=== PATIENT | female | born 1980 ===

== ENCOUNTER 2025-01-09 13:09 | Inpatient (IN) | payer SELFPAY ==
[2025-01-09 13:32] VITALS: BP 135/91; PULSE 98; RESP 16; TEMP 36.3; O2SAT 100
--- NOTE | 2025-01-09 14:28 | ED.NAVMDI ---
HPI - Nausea/Vomiting/Diarrhea General Chief complaint: Nausea/Vomiting/Diarrhea <Meliza Mahmood PA-C - Last Filed: 01/10/25 10:50> Stated complaint: abd pain for 2 week, NVD, some fever <Meliza Mahmood PA-C - Last Filed: 01/10/25 10:50> Time Seen by Provider: 01/09/25 14:28 <Meliza Mahmood PA-C - Last Filed: 01/10/25 10:50> Focused HPI: This is a 44 year old female that presents to the ER for nausea, vomiting, diarrhea. Ongoing over the last couple of weeks. Reports mid abdominal pain, low grade fevers. Denies dysuria, hematuria. Reports she saw bright red blood in her stool. GENERAL: Well-appearing, well-nourished, and in no acute distress. HEAD: Normocephalic, atraumatic. CHEST: Clear to auscultation. ?No respiratory distress. HEART: Regular rate and rhythm.? NEURO: ?Alert and oriented x3. Patient screened in triage and initial orders placed.? ?Additional care and disposition to be based upon?diagnostic testing and treatment. <Meliza Mahmood PA-C - Last Filed: 01/10/25 10:50> History of Present Illness HPI Narrative: Patient 44-year-old female who presents emergency department chief complaint of nausea vomiting diarrhea. Patient reports the last week she has been having pain reports that is more the epigastric type pain reports radiates to her back patient did report that she had some blood in her stool earlier today <Alexandr Millan MD - Last Filed: 01/09/25 19:36> Related Data Home medications: Home Medications ?Medication ?Instructions ?Recorded ?Confirmed ?Last Taken ?Type losartan 50 mg tablet 50 mg PO DAILY 01/09/25 01/09/25 01/08/25 History metoprolol succinate 100 mg 100 mg PO DAILY 01/09/25 01/09/25 01/08/25 History tablet,extended release 24 hr <Meliza Mahmood PA-C - Last Filed: 01/10/25 10:50> Allergies/Adverse reactions: Allergies Allergy/AdvReac Type Severity Reaction Status Date / Time Sulfa (Sulfonamide Allergy Hives Verified 01/09/25 13:36 Antibiotics) <Meliza Mahmood PA-C - Last Filed: 01/10/25 10:50> Review of Systems Review of Systems: A 10 system review of systems was completed on the patient and is negative except for what is stated in the HPI. Nursing and ancillary documentation was reviewed. <Alexandr Millan MD - Last Filed: 01/09/25 19:36> PMFSH Past Medical History Medical History: Medical History Obesity (BMI 30-39.9) <Meliza Mahmood PA-C - Last Filed: 01/10/25 10:50> Surgical History Surgical History: Surgical History History of x2 <Meliza Mahmood PA-C - Last Filed: 01/10/25 10:50> Social History Social History: Social History Smoking packs per day: 17 Smoking cigarettes per day: 340.0 Smoking status: Current every day smoker Tobacco type: cigarettes Second hand tobacco smoke exposure: No Alcohol intake: former Substance use: former Do You Feel Safe in your Home?: Yes Lack of Transportation: No Lack of Food: Never True Current Housing: I Have Housing Concerned About Future Housing: No Difficulty Paying Gas/Electric Bills: No Difficulty Paying for Meds: No Currently Unemployed: No Education: High School Diploma/GED Difficulty w/ Childcare or Family Care: No Spiritual care concerns: No <Meliza Mahmood PA-C - Last Filed: 01/10/25 10:50> Exam Narrative: GENERAL: Well-appearing, well-nourished, and in no acute distress. HEAD: Normocephalic, atraumatic. EYES: PERRLA and EOMI. ENT: Nares clear, no rhinorrhea or epistaxis. Mucous membranes moist. NECK: Supple. CHEST: Clear to auscultation. No respiratory distress. HEART: Regular rate and rhythm. No murmur heard. Normal peripheral pulses. ABDOMEN: Soft, diffusely tender to palpation, nondistended, normal active bowel sounds. : Guaiac-negative stool EXTREMITIES: Normal range of motion. No edema. SKIN: Warm, dry, no rash. NEURO: No focal deficits. Alert and oriented x3. PSYCH: Normal mood and affect. <Alexandr Millan MD - Last Filed: 01/09/25 19:36> Course Vital Signs Vital signs: Vital Signs Temperature 97.3 F L 01/09/25 13:32 Pulse Rate 98 01/09/25 13:32 Respiratory Rate 16 01/09/25 13:32 Blood Pressure 135/91 H 01/09/25 13:32 Pulse Oximetry 100 01/09/25 13:32 Oxygen Delivery Room Air 01/09/25 13:32 Temperature 97.8 F 01/10/25 04:47 Pulse Rate 87 01/10/25 08:29 Respiratory Rate 16 01/10/25 04:49 Blood Pressure 143/91 H 01/10/25 04:49 Pulse Oximetry 100 01/10/25 04:49 Oxygen Delivery Room Air 01/10/25 08:00 <Meliza Mahmood PA-C - Last Filed: 01/10/25 10:50> Vital Signs Temperature 97.3 F L 01/09/25 13:32 Pulse Rate 98 01/09/25 13:32 Respiratory Rate 16 01/09/25 13:32 Blood Pressure 135/91 H 01/09/25 13:32 Pulse Oximetry 100 01/09/25 13:32 Oxygen Delivery Room Air 01/09/25 13:32 Temperature 97.8 F 01/10/25 04:47 Pulse Rate 87 01/10/25 08:29 Respiratory Rate 16 01/10/25 04:49 Blood Pressure 143/91 H 01/10/25 04:49 Pulse Oximetry 100 01/10/25 04:49 Oxygen Delivery Room Air 01/10/25 08:00 <Alexandr Millan MD - Last Filed: 01/09/25 19:36> MDM - Nausea/Vomiting/Diarrhea Lab Data Result diagrams: 01/10/25 06:59 01/10/25 06:59 <Meliza Mahmood PA-C - Last Filed: 01/10/25 10:50> Labs: Lab Results 01/09/25 01/09/2525 Range/Units 15:10 15:11 15:18 WBC 11.0 H (4.5-10.0) K/mm3 RBC 4.67 (4.2-5.4) M/mm3 Hgb 11.4 L (12.0-15.0) g/dL Hct 35.4 L (37.0-47.0) % MCV 75.8 L (80-100) fl MCH 24.4 L (26-34) pg MCHC 32.2 (32-36) g/dl RDW 20.8 H (11.5-14.5) % Plt Count 500 H (150-375) k/mm3 MPV 11.2 H (7.4-10.4) fl Immature Gran % (Auto) 0.5 (0-0.5) % Neut % (Auto) 72.5 (45.5-73.1) % Lymph % (Auto) 16.0 L (18.3-44.2) % D[place]key % (Auto) 8.8 H (2.6-8.5) % Eos % (Auto) 1.8 (0-4.4) % Baso % (Auto) 0.4 (0.2-1.2) % Lymph # (Auto) 1.76 (0.9-3.2) K/mm3 [place]key # (Auto) 1.0 H (0.1-0.6) K/mm3 Eos # (Auto) 0.2 (0-0.3) K/mm3 Baso # (Auto) 0.0 (0.0-0.1) K/mm3 Abs Immat Gran (auto) 0.05 H (0.00-0.031) K/mm3 Absolute Neuts (auto) 8.0 H (1.3-6.7) K/mm3 Absolute Nucleated RBC 0.000 (0.0-0.012) K/mm3 Nucleated RBC % 0.0 (0.0-0.2) % PT 14.0 (11.1-14.7) Seconds INR 1.0 APTT 23.9 (22.3-36.8) Seconds Sodium 136 L (137-145) mmol/L Potassium 3.7 (3.4-5.0) mmol/L Chloride 105 (98-107) mmol/L Carbon Dioxide 19 L (22-30) mmol/L Anion Gap 12 (4-12) mmol/L BUN 7 (7-17) mg/dL Creatinine 0.49 L (0.7-1.0) mg/dL Estim Creat Clear Calc 128 ml/min Estimated GFR > 60 (59 - ) Glucose 126 H (65-110) mg/dL Calcium 8.4 (8.4-10.2) mg/dL Total Bilirubin 5.5 H (0.2-1.3) mg/dL AST 926 H (14-36) U/L ALT 720 H (6-35) U/L Alkaline Phosphatase 292 H (38-126) U/L Total Protein 7.0 (6.3-8.2) g/dL Albumin 3.6 (3.5-5.1) g/dL Lipase 169 (23-300) U/L Urine Color Dark yellow (Yellow) Urine Appearance Clear (Clear) Urine pH 5.5 (5.0-9.0) Ur Specific [place] 1.022 (1.001-1.035) Urine Protein Trace (Negative) mg/dL Urine Glucose (UA) Negative (Negative) mg/dL Urine Ketones Negative (Negative) mg/dL Ur Blood (Man) 1+ H (Negative) Urine Nitrate Positive H (Negative) Urine Bilirubin 3+ H (Negative) Urine Urobilinogen 1.0 (<2.0) mg/dL Leukocyte Esterase Rfl 2+ H (Negative) SHANNAN/UL Urine RBC 3-5 H (0-2) /hpf Urine WBC 21-50 H (0-3) /hpf Ur Squamous Epith Cells None seen (Few) /hpf Urine Bacteria 4+ H /hpf Urine Casts 0-2 POC Urine HCG, Qual Negative (Negative) Influenza A (RT-PCR) Negative (Negative) Influenza B (RT-PCR) Negative (Negative) SARS-CoV-2 RNA (RT-PCR) Negative (Negative) <Meliza Mahmood PA-C - Last Filed: 01/10/25 10:50> Lab Results 01/09/25 01/09/25 01/09/25 Range/Units 15:10 15:11 15:18 WBC 11.0 H (4.5-10.0) K/mm3 RBC 4.67 (4.2-5.4) M/mm3 Hgb 11.4 L (12.0-15.0) g/dL Hct 35.4 L (37.0-47.0) % MCV 75.8 L (80-100) fl MCH 24.4 L (26-34) pg MCHC 32.2 (32-36) g/dl RDW 20.8 H (11.5-14.5) % Plt Count 500 H (150-375) k/mm3 MPV 11.2 H (7.4-10.4) fl Immature Gran % (Auto) 0.5 (0-0.5) % Neut % (Auto) 72.5 (45.5-73.1) % Lymph % (Auto) 16.0 L (18.3-44.2) % Dickey % (Auto) 8.8 H (2.6-8.5) % Eos % (Auto) 1.8 (0-4.4) % Baso % (Auto) 0.4 (0.2-1.2) % Lymph # (Auto) 1.76 (0.9-3.2) K/mm3 [place]key # (Auto) 1.0 H (0.1-0.6) K/mm3 Eos # (Auto) 0.2 (0-0.3) K/mm3 Baso # (Auto) 0.0 (0.0-0.1) K/mm3 Abs Immat Gran (auto) 0.05 H (0.00-0.031) K/mm3 Absolute Neuts (auto) 8.0 H (1.3-6.7) K/mm3 Absolute Nucleated RBC 0.000 (0.0-0.012) K/mm3 Nucleated RBC % 0.0 (0.0-0.2) % PT 14.0 (11.1-14.7) Seconds INR 1.0 APTT 23.9 (22.3-36.8) Seconds Sodium 136 L (137-145) mmol/L Potassium 3.7 (3.4-5.0) mmol/L Chloride 105 (98-107) mmol/L Carbon Dioxide 19 L (22-30) mmol/L Anion Gap 12 (4-12) mmol/L BUN 7 (7-17) mg/dL Creatinine 0.49 L (0.7-1.0) mg/dL Estim Creat Clear Calc 128 ml/min Estimated GFR > 60 (59 - ) Glucose 126 H (65-110) mg/dL Calcium 8.4 (8.4-10.2) mg/dL Total Bilirubin 5.5 H (0.2-1.3) mg/dL AST 926 H (14-36) U/L ALT 720 H (6-35) U/L Alkaline Phosphatase 292 H (38-126) U/L Total Protein 7.0 (6.3-8.2) g/dL Albumin 3.6 (3.5-5.1) g/dL Lipase 169 (23-300) U/L Urine Color Dark yellow (Yellow) Urine Appearance Clear (Clear) Urine pH 5.5 (5.0-9.0) Ur Specific [place] 1.022 (1.001-1.035) Urine Protein Trace (Negative) mg/dL Urine Glucose (UA) Negative (Negative) mg/dL Urine Ketones Negative (Negative) mg/dL Ur Blood (Man) 1+ H (Negative) Urine Nitrate Positive H (Negative) Urine Bilirubin 3+ H (Negative) Urine Urobilinogen 1.0 (<2.0) mg/dL Leukocyte Esterase Rfl 2+ H (Negative) SHANNAN/UL Urine RBC 3-5 H (0-2) /hpf Urine WBC 21-50 H (0-3) /hpf Ur Squamous Epith Cells None seen (Few) /hpf Urine Bacteria 4+ H /hpf Urine Casts 0-2 POC Urine HCG, Qual Negative (Negative) Influenza A (RT-PCR) Negative (Negative) Influenza B (RT-PCR) Negative (Negative) SARS-CoV-2 RNA (RT-PCR) Negative (Negative) <Alexandr Millan MD - Last Filed: 01/09/25 19:36> Imaging Data Radiologist's impression: ITS Impressions Abdomen Ultrasound 01/09/25 18:21 IMPRESSION: Cholelithiasis. Adenomyomatosis of the gallbladder. Otherwise, normal limited abdominal ultrasound. Abdomen/Pelvis CT 01/09/25 18:33 IMPRESSION: 1. No acute abdominal process with no evidence of appendicitis, diverticulitis or intestinal obstruction. 2. Cholelithiasis. 3. Sliding hiatus hernia. <Meliza Mahmood PA-C - Last Filed: 01/10/25 10:50> Critical Care Time Critical Care Time Critical Care Time: No <Meliza Mahmood PA-C - Last Filed: 01/10/25 10:50> Discharge Plan Discharge Clinical Impression: Transaminitis, Hyperbilirubinemia, Acute UTI <Meliza Mahmood PA-C - Last Filed: 01/10/25 10:50> Patient Disposition: Still a Patient <Meliza Mahmood PA-C - Last Filed: 01/10/25 10:50> Condition: Stable <Meliza Mahmood PA-C - Last Filed: 01/10/25 10:50>
--- NOTE | 2025-01-09 15:18 | PC.NURSE ---
RN noted pt scelra jaundice, urine orange tinted. Pt states S/O has told her she looks yellow. Pt reports of history of substance abuse. Denies recent use. Meliza ARCHER informed
[2025-01-09 15:20] LABS: BEDSIDEPREGUCG Negative (Negative)
[2025-01-09 15:30] LABS: Basophils Percent Auto 0.4 % (0.2-1.2); Eosinophils Absolute Auto 0.2 K/mm3 (0-0.3); Eosinophils Percent Auto 1.8 % (0-4.4); Hematocrit 35.4 % (37.0-47.0); Hemoglobin 11.4 g/dL (12.0-15.0); Immature Granulocyte Absolute 0.05 K/mm3 (0.00-0.031); Immature Granulocyte Percent A 0.5 % (0-0.5); Lymphocytes Absolute Auto 1.76 K/mm3 (0.9-3.2); Mean Corpuscular HGB Conc 32.2 g/dl (32-36); Mean Corpuscular Hemoglobin 24.4 pg (26-34); Mean Corpuscular Volume 75.8 fl (80-100); Mean Platelet Volume 11.2 fl (7.4-10.4); Monocytes Percent Auto 8.8 % (2.6-8.5); Neutrophils Percent Auto 72.5 % (45.5-73.1); Platelet Count Result 500 k/mm3 (150-375); Red Blood Count 4.67 M/mm3 (4.2-5.4); Red Cell Distribution Width 20.8 % (11.5-14.5)
[2025-01-09 15:33] LABS: Add Urine Microscopic? YES; Appearance Urine Clear (Clear); Bacteria Urine 4+ /hpf; Bilirubin Urine 3+ (Negative); Blood Urine 1+ (Negative); Color Urine Dark Yellow (Yellow); Glucose Urine UA Negative (Negative); Ketones Urine Negative (Negative); Leukocyte Esterase Ur 2+ LEU/UL (Negative); Nitrate Urine Positive (Negative); Non Pathogenic Casts 0-2; Protein Urine Trace mg/dL (Negative); Specific Grav Ur 1.022 (1.001-1.035); Squamous Epithelial Cell Urine None Seen /hpf (Few); WBC Urine 21-50 /hpf (0-3); pH Urine 5.5 (5.0-9.0)
[2025-01-09 15:41] LABS: Partial Thromboplastin Time 23.9 Seconds (22.3-36.8)
[2025-01-09 15:51] LABS: Alanine Aminotransferase 720 U/L (6-35); Albumin Level 3.6 g/dL (3.5-5.1); Alkaline Phosphatase 292 U/L (38-126); Anion Gap 12 mmol/L (4-12); Bilirubin,Total 5.5 mg/dL (0.2-1.3); Blood Urea Nitrogen 7 mg/dL (7-17); Calcium 8.4 mg/dL (8.4-10.2); Carbon Dioxide 19 mmol/L (22-30); Chloride 105 mmol/L (98-107); Estimated CRCL calculation 128 ml/min; Estimated Glomerular Filt Rate > 60; Glucose 126 mg/dL (65-110); Lipase 169 U/L (23-300); Potassium 3.7 mmol/L (3.4-5.0); Sodium 136 mmol/L (137-145)
[2025-01-09 16:17] LABS: Influenza A QL RT-PCR Negative (Negative); Influenza B QL RT-PCR Negative (Negative); SARS-CoV-2 RNA PCR Negative (Negative)
[2025-01-09 16:18] LABS: Aspartate Amino Transferase 926 U/L (14-36)
[2025-01-09] MEDS: ONDANSETRON INJ 4 MG/2 ML VIAL IV PUSH (16:55)
[2025-01-09] MEDS: SODIUM CHLORIDE 0.9% IV 1,000 ML 999 ML IV CONT (16:55)
[2025-01-09] MEDS: PANTOPRAZOLE SODIUM IV 40 MG VIAL IV PUSH (16:55)
[2025-01-09 18:01] VITALS: BP 121/58; PULSE 89; RESP 16; TEMP 36.6; O2SAT 100
[2025-01-09 18:50] VITALS: BP 116/61; PULSE 99; RESP 16; O2SAT 98
[2025-01-09 21:04] VITALS: BP 154/82; PULSE 110; RESP 24; TEMP 36.9; O2SAT 100
[2025-01-09] MEDS: PIPERACILLN/TAZ 3.375GM/NS50ML 3.375 GM/50 ML BAG IVPB ×2 (21:37→23:55)
[2025-01-09] MEDS: SODIUM CHLORIDE 0.9% IV 1,000 ML 125 ML IV CONT (22:28)
--- NOTE | 2025-01-09 22:42 | PM.IMHP ---
H&P: HPI History of Present Illness Date/Time: 01/09/25 22:42 Chief Complaint: 1. RUQ Abdominal 2. Nausea; Vomiting Narrative: Duane Ricardo is a HTN, obesity, nicotine dependence She over the last 1-2 weeks has been experiencing intermittent RUQ abdominal pains; they are intermittent, sharp, non-radiating, rated 8-10 in intensity; aggravated by meals; associated with post-prandial vomiting, loose bowel movements with x1 bloody stools; associated with jaundice, anorexia, malaise, fatigue and anxiety. She denies fevers, chills, dizziness, chest pain, joint pain/swellings; cough, LOC A entry level truck driver; she smokes about 1pps of cigarettes, denies alcohol or consume recreational/illicit drugs; surgical history includes caesarean section Work-up findings: Abdominal US: Cholelithiasis. Adenomyomatosis of the gallbladder. Abdomen/Pelvis CT: 1. No acute abdominal process with no evidence of appendicitis, diverticulitis or intestinal obstruction. 2. Cholelithiasis. 3. Sliding hiatus hernia. UA: +Nitrites; 2+LE; 21-50 WBC; 4+ Bacteria Influenza A/BB, COVID: Negative WBC 11; Hb 11.4; PLT 500 Na 136; K 3.7; Cl105; Co2 19; AG 12; AST 926; ALT 720; ALP 292; T. Bili 5.5; Lipase 169 Giovana Ricardo will be admitted, evaluated and managed for cholelithiasis, cholestatic Hepatitis, UTI Review of Systems Review of Systems: All systems reviewed & are unremarkable except as noted in HPI and below PMFSH Past Medical History Medical History (Updated 01/10/25 @ 02:51 by Aly Martinez MD) Obesity (BMI 30-39.9) Social History Social History Smoking packs per day: 17 Smoking cigarettes per day: 340.0 Smoking status: Current every day smoker Tobacco type: cigarettes Second hand tobacco smoke exposure: No Alcohol intake: former Substance use: former Do You Feel Safe in your Home?: Yes Lack of Transportation: No Lack of Food: Never True Current Housing: I Have Housing Concerned About Future Housing: No Difficulty Paying Gas/Electric Bills: No Difficulty Paying for Meds: No Currently Unemployed: No Education: High School Diploma/GED Difficulty w/ Childcare or Family Care: No Spiritual care concerns: No Meds Home Medications and Allergies Home Medications ?Medication ?Instructions ?Recorded ?Confirmed ?Type losartan 50 mg tablet 50 mg PO DAILY 01/09/25 01/09/25 History metoprolol succinate 100 mg 100 mg PO DAILY 01/09/25 01/09/25 History tablet,extended release 24 hr Allergies Allergy/AdvReac Type Severity Reaction Status Date / Time Sulfa (Sulfonamide Allergy Hives Verified 01/09/25 13:36 Antibiotics) Vital Signs Vital Signs - 24 hr 01/09/25 13:32 01/09/25 18:01 01/09/25 18:50 Temperature 97.3 F L 97.9 F Pulse Rate 98 89 99 Respiratory Rate 16 16 16 Blood Pressure 135/91 H 121/58 L 116/61 Pulse Oximetry 100 100 98 Oxygen Delivery Room Air 01/09/25 21:04 Temperature 98.4 F Pulse Rate 110 H Respiratory Rate 24 H Blood Pressure 154/82 H Pulse Oximetry 100 Oxygen Delivery Exam Const: General: no acute distress HENMT: Ears: TM's normal bilaterally Mouth: Yes moist mucous membranes Eyes: Sclera: scleral abnormality bilateral Pupils: Equal, round and reactive pupils present EOM: EOMs intact bilaterally Neck: Neck: supple and no JVD Thyroid: thyroid normal Resp: Effort & Inspection: normal respiratory effort Auscultation: clear to auscultation bilaterally, crackles, rales, rhonchi and diminished lung sounds Cardio: Rate: regular rate GI: Inspection: distended Auscultation: normal bowel sounds Skin: General skin exam: normal color (Icteric) Neuro: General: gait normal Motor exam (neuro): 5/5 motor strength present throughout, Normal motor muscle tone present throughout and Abnormal motor strength present Extrem: General: normal to inspection Psych: Mental Status: mental status grossly normal Affect: normal affect H&P: Results Labs Labs: Short CBC 01/09/25 Range/Units 15:10 WBC 11.0 H (4.5-10.0) K/mm3 Hgb 11.4 L (12.0-15.0) g/dL Hct 35.4 L (37.0-47.0) % Plt Count 500 H (150-375) k/mm3 BMP 01/09/25 15:10 Sodium 136 L Potassium 3.7 Chloride 105 Carbon Dioxide 19 L BUN 7 Creatinine 0.49 L Glucose 126 H Calcium 8.4 Liver Function 01/09/25 Range/Units 15:10 Total Bilirubin 5.5 H (0.2-1.3) mg/dL AST 926 H (14-36) U/L ALT 720 H (6-35) U/L Alkaline Phosphatase 292 H (38-126) U/L Albumin 3.6 (3.5-5.1) g/dL Urine 01/09/25 Range/Units 15:10 Urine Color Dark yellow (Yellow) Urine Appearance Clear (Clear) Urine pH 5.5 (5.0-9.0) Ur Specific [place] 1.022 (1.001-1.035) Urine Protein Trace (Negative) mg/dL Urine Glucose (UA) Negative (Negative) mg/dL Assessment and Plan Assessment and plan (1) Cholestatic hepatitis: Code(s): K75.89 - Other specified inflammatory liver diseases Status: Acute (2) Obesity (BMI 30-39.9): Code(s): E66.9 - Obesity, unspecified Status: Acute (3) Hypertension: Code(s): I10 - Essential (primary) hypertension Status: Acute (4) Nicotine dependence: Code(s): F17.200 - Nicotine dependence, unspecified, uncomplicated Status: Acute Plan Acute and principal conditions 1. Cholestatic hepatitis; Cholelithiasis Cholelithiasis. Adenomyomatosis of the gallbladder 2. NAGMA 3. UTI 4. Sliding hiatus hernia. Rx: A. Zosyn; IVFs; B. General surgery consulted; GI consulted C. NPO Chronic and stable conditions 1. Nicotine dependence. 2. Obesity, BMI 35. 3. Hypertension Miscellaneous care. 1. Code status. Full 2. Nutrition. NPO 3. VTE prophylaxis. SCDs; [facility] Hospitalist [facility] Advance Care Plan I have confirmed that the patient's Advanced Care Plan is present, code status is documented, or surrogate decision maker is listed in patient medical record.: Yes Medication Reconciliation I have utilized all available resources to obtain, update and review the patients current medications (includes all prescriptions, OTC, herbals, cannabis, and nutritional supplements).: Yes The patient is not eligible for med reconciliation; the patient is in a emergent medical situation where delaying treatment would jeopardize the patients health.: Yes
[2025-01-09 23:03] VITALS: BP 148/88; PULSE 95; RESP 15; O2SAT 99
[2025-01-09 23:23] VITALS: BP 137/88; PULSE 101; RESP 18; TEMP 36.9; O2SAT 99
[2025-01-09 23:27] VITALS: BMI 35.3
[2025-01-09] MEDS: MORPHINE SULFATE (*CRX) 2 MG/ML INJ IV PUSH (23:52)
[2025-01-10] VITALS (7 sets, daily range): BP systolic 110–154; BP diastolic 69–91; PULSE 77–104; RESP 14–18; TEMP 36.3–36.8; O2SAT 97–100
--- NOTE | 2025-01-10 01:28 | ADMGEN ---
This patient, Giovana Ricardo, was admitted to [facility] Surg Room 325-02. Patient/family oriented to hospital policies and general routines including ID bracelet, bed and alarms, visiting hours, pain management, procedures, bathroom and other care routines, personal items, smoking policy, room service/diet, and visiting hours. Information on how to activate the Rapid Response Team has been discussed. Patient/Family are encouraged to report perceived risks to care and to ask questions if they do not understand what they are told or what they should do.
[2025-01-10] MEDS: PIPERACILLN/TAZ 3.375GM/NS50ML 3.375 GM/50 ML BAG IVPB ×3 (05:23→17:15)
[2025-01-10 07:28] LABS: Basophils Absolute Auto 0.1 K/mm3 (0.0-0.1); Basophils Percent Auto 0.6 % (0.2-1.2); Eosinophils Absolute Auto 0.3 K/mm3 (0-0.3); Eosinophils Percent Auto 2.9 % (0-4.4); Hematocrit 29.1 % (37.0-47.0); Hemoglobin 9.7 g/dL (12.0-15.0); Immature Granulocyte Absolute 0.03 K/mm3 (0.00-0.031); Immature Granulocyte Percent A 0.4 % (0-0.5); Lymphocytes Absolute Auto 1.95 K/mm3 (0.9-3.2); Lymphocytes Percent Auto 22.8 % (18.3-44.2); Mean Corpuscular HGB Conc 33.3 g/dl (32-36); Mean Corpuscular Hemoglobin 24.4 pg (26-34); Mean Corpuscular Volume 73.1 fl (80-100); Mean Platelet Volume 10.6 fl (7.4-10.4); Monocytes Absolute Auto 0.9 K/mm3 (0.1-0.6); Monocytes Percent Auto 10.4 % (2.6-8.5); Neutrophils Absolute Auto 5.4 K/mm3 (1.3-6.7); Neutrophils Percent Auto 62.9 % (45.5-73.1); Platelet Count Result 471 k/mm3 (150-375); Red Blood Count 3.98 M/mm3 (4.2-5.4); Red Cell Distribution Width 20.1 % (11.5-14.5); White Blood Count 8.6 K/mm3 (4.5-10.0)
[2025-01-10 07:57] LABS: Alanine Aminotransferase 571 U/L (6-35); Albumin Level 2.9 g/dL (3.5-5.1); Alkaline Phosphatase 239 U/L (38-126); Anion Gap 9 mmol/L (4-12); Aspartate Amino Transferase 708 U/L (14-36); Bilirubin Indirect 1.3 mg/dL (0-1.1); Blood Urea Nitrogen 4 mg/dL (7-17); Calcium 7.9 mg/dL (8.4-10.2); Carbon Dioxide 21 mmol/L (22-30); Chloride 109 mmol/L (98-107); Estimated CRCL calculation 108 ml/min; Estimated Glomerular Filt Rate > 60; Glucose 87 mg/dL (65-110); Lipase 143 U/L (23-300); Potassium 3.6 mmol/L (3.4-5.0); Sodium 139 mmol/L (137-145)
[2025-01-10] MEDS: HEPARIN SODIUM 5,000 UNITS/ML VIAL 5000 UNITS SUB-Q ×2 (08:29→20:33)
[2025-01-10] MEDS: METOPROLOL SUCCINATE EXT REL 100 MG TABCR PO (08:29)
[2025-01-10] MEDS: SODIUM CHLORIDE 0.9% IV 1,000 ML 100 ML IV CONT ×2 (08:33→17:16)
[2025-01-10 08:51] LABS: Anisocytosis 1+; Platelet Estimate Adequate (Adequate)
[2025-01-10 08:52] LABS: Microcytosis 1+ (NORMAL); Schistocytes None Seen
[2025-01-10 09:24] LABS: Hepatitis B Surface Antigen Negative (Negative)
[2025-01-10 09:30] LABS: HAV RESULT Negative (Negative); Hepatitis B Core IgM Result Negative (Negative)
[2025-01-10 09:42] LABS: Iron 51 ug/dL (37-170)
[2025-01-10 09:47] LABS: Hepatitis C Virus Antibody Reactive (Negative)
[2025-01-10 09:52] LABS: Percent Iron Saturation 11 % (20-50)
--- NOTE | 2025-01-10 10:00 | PM.CNGS ---
Assessment and Plan Assessment and plan (1) Cholelithiasis: Code(s): K80.20 - Calculus of gallbladder without cholecystitis without obstruction Status: Acute Assessment and Plan: CT scan abdomen and pelvis showed cholelithiasis. RUQ ultrasound showed cholelithiasis and adenomyomatosis of the gallbladder. No evidence of cholecystitis or biliary duct dilatation on US or CT. LFTs elevated with total bilirubin at 5.5 on admission and up to 6.0 today. MRCP has been ordered for today and GI was consulted. If her transaminitis appears to be related to choledocholithiasis, then she would eventually need a laparoscopic cholecystectomy. Will continue to follow along and decide plan depending on results of workup. (2) Elevated LFTs: Code(s): R79.89 - Other specified abnormal findings of blood chemistry Status: Acute Assessment and Plan: See plan above. GI consulted. MRCP ordered. (3) Obesity (BMI 30-39.9): Code(s): E66.9 - Obesity, unspecified Status: Acute (4) Hypertension: Code(s): I10 - Essential (primary) hypertension Status: Acute (5) Nicotine dependence: Code(s): F17.200 - Nicotine dependence, unspecified, uncomplicated Status: Acute Plan I have discussed the patient's case and plan of care with Dr. Carlos. History of Present Illness Consult details Consult date: 01/10/25 Reason for consult: other (Cholelithiasis, elevated liver enzymes) Requesting physician: Alexandr Millan MD Narrative: This is a 44-year-old woman with PMH of hypertension, who we have been asked to see in surgical consultation for cholelithiasis and elevated liver enzymes. She reports having an episode of vomiting, diarrhea, and upper abdominal pain starting 2 weeks ago. Her symptoms lasted for about a week and eventually improved. She felt that her pain vomiting was attributed to eating. She would vomit about 2 hours after eating any solid foods. She also reports having intermittent fevers that would improve with Tylenol and Motrin over the past 2 weeks. She initially thought this was related to a viral infection as her symptoms improved. Then, 2 days ago, her upper abdominal pain, vomiting, and diarrhea returned. 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 Her pain progressed yesterday and she eventually stop to come into the ED for evaluation. [place] [address], total bilirubin 5.5, AST 926, ALT 720, alk-phos 292, and lipase normal. UA suggests UTI. Culture pending. Influenza a/B, COVID, all negative. Right upper quadrant abdominal ultrasound showed cholelithiasis, adenomyomatosis of the gallbladder, but otherwise normal abdominal ultrasound. CT scan of the abdomen pelvis showed cholelithiasis, small sliding hiatal hernia, but no other acute intra-abdominal processes. She was admitted and our service was consulted. MRCP has been ordered but not yet done. She reports having upper abdominal pain today. No vomiting since admission. With further questioning, she does endorse dark orange/brown colored urine and acholic stools for the past 2 days. Her significant other also noticed scleral icteric. She denies any history of pancreatitis or known gallbladder disease. Only previous abdominal surgeries is 2 deliveries. She denies any heavy alcohol use. She is a smoker of about 1 pack per day. Review of Systems Review of Systems: All systems reviewed & are unremarkable except as noted in HPI and below PMFSH Past Medical History Medical History Obesity (BMI 30-39.9) Surgical History Surgical History History of x2 Social History Social History Smoking packs per day: 17 Smoking cigarettes per day: 340.0 Smoking status: Current every day smoker Tobacco type: cigarettes Second hand tobacco smoke exposure: No Alcohol intake: former Substance use: former Do You Feel Safe in your Home?: Yes Lack of Transportation: No Lack of Food: Never True Current Housing: I Have Housing Concerned About Future Housing: No Difficulty Paying Gas/Electric Bills: No Difficulty Paying for Meds: No Currently Unemployed: No Education: High School Diploma/GED Difficulty w/ Childcare or Family Care: No Spiritual care concerns: No Meds Home Medications and Allergies Home Medications ?Medication ?Instructions ?Recorded ?Confirmed ?Type losartan 50 mg tablet 50 mg PO DAILY 01/09/25 01/09/25 History metoprolol succinate 100 mg 100 mg PO DAILY 01/09/25 01/09/25 History tablet,extended release 24 hr Allergies Allergy/AdvReac Type Severity Reaction Status Date / Time Sulfa (Sulfonamide Allergy Hives Verified 01/09/25 13:36 Antibiotics) Vital Signs Vital Signs - 24 hr 01/09/25 13:32 01/09/25 18:01 01/09/25 18:50 Temperature 97.3 F L 97.9 F Pulse Rate 98 89 99 Respiratory Rate 16 16 16 Blood Pressure 135/91 H 121/58 L 116/61 Pulse Oximetry 100 100 98 Oxygen Delivery Room Air 01/09/25 21:04 01/09/25 23:03 01/09/25 23:23 Temperature 98.4 F 98.5 F Pulse Rate 110 H 95 101 H Respiratory Rate 24 H 15 18 Blood Pressure 154/82 H 148/88 H 137/88 Pulse Oximetry 100 99 99 Oxygen Delivery 01/09/25 23:45 01/10/25 04:47 01/10/25 04:47 Temperature 97.8 F Pulse Rate 87 104 H Respiratory Rate 14 16 Blood Pressure 147/81 H 154/86 H Pulse Oximetry 98 100 Oxygen Delivery Room Air 01/10/25 04:49 01/10/25 08:29 Temperature Pulse Rate 98 87 Respiratory Rate 16 Blood Pressure 143/91 H Pulse Oximetry 100 Oxygen Delivery Exam Const: General: comfortable and no acute distress Nutritional Appearance: average body habitus Orientation/consciousness: patient oriented x3 HENMT: Head: normocephalic and atraumatic Ears: hearing grossly normal bilaterally Mouth: Yes moist mucous membranes Eyes: General: appearance normal, both eyes and all related structures Pupils: Equal, round and reactive pupils present Neck: Neck: normal visual inspection and full ROM Resp: Effort & Inspection: no respiratory distress Auscultation: clear to auscultation bilaterally Cardio: Rate: regular rate Rhythm: regular rhythm Peripheral pulses: Peripheral pulses 2+ throughout GI: Inspection: non-distended, scar (Pfannenstiel scar) and no visible herniation GI Palp: Yes Soft to palpation, Yes Tenderness to palpation present (GI) (Mild epigastric area tenderness), No Guarding due to palpation present (GI), Yes No hepatosplenomegaly present and No Rebound tenderness present Auscultation: normal bowel sounds Skin: General skin exam: normal color Neuro: General: moves all extremities Cranial nerves: Yes Equal, round and reactive pupils present Speech: normal speech Motor exam (neuro): 5/5 motor strength present throughout Extrem: General: normal to inspection and no edema Psych: Mental Status: mental status grossly normal Attitude: cooperative Insight: Good insight present (Psych) Judgement: Good judgement present (Psych) Results Labs 01/10/25 06:59 01/10/25 06:59 Labs: Abnormal lab results 01/09/25 01/10/25 Range/Units 15:10 06:59 WBC 11.0 H (4.5-10.0) K/mm3 RBC 3.98 L (4.2-5.4) M/mm3 Hgb 11.4 L 9.7 L (12.0-15.0) g/dL Hct 35.4 L 29.1 L (37.0-47.0) % MCV 75.8 L 73.1 L (80-100) fl MCH 24.4 L 24.4 L (26-34) pg RDW 20.8 H 20.1 H (11.5-14.5) % Plt Count 500 H 471 H (150-375) k/mm3 MPV 11.2 H 10.6 H (7.4-10.4) fl Lymph % (Auto) 16.0 L (18.3-44.2) % Walker % (Auto) 8.8 H 10.4 H (2.6-8.5) % Walker # (Auto) 1.0 H 0.9 H (0.1-0.6) K/mm3 Abs Immat Gran (auto) 0.05 H (0.00-0.031) K/mm3 Absolute Neuts (auto) 8.0 H (1.3-6.7) K/mm3 Sodium 136 L (137-145) mmol/L Chloride 109 H (98-107) mmol/L Carbon Dioxide 19 L 21 L (22-30) mmol/L BUN 4 L (7-17) mg/dL Creatinine 0.49 L 0.59 L (0.7-1.0) mg/dL Glucose 126 H (65-110) mg/dL Calcium 7.9 L (8.4-10.2) mg/dL TIBC 470 H (261-462) ug/dL Total Bilirubin 5.5 H 6.0 H (0.2-1.3) mg/dL Indirect Bilirubin 1.3 H (0-1.1) mg/dL AST 926 H 708 H (14-36) U/L ALT 720 H 571 H (6-35) U/L Alkaline Phosphatase 292 H 239 H (38-126) U/L Total Protein 6.0 L (6.3-8.2) g/dL Albumin 2.9 L (3.5-5.1) g/dL Ur Blood (Man) 1+ H (Negative) Urine Nitrate Positive H (Negative) Urine Bilirubin 3+ H (Negative) Leukocyte Esterase Rfl 2+ H (Negative) SHANNAN/UL Urine RBC 3-5 H (0-2) /hpf Urine WBC 21-50 H (0-3) /hpf Urine Bacteria 4+ H /hpf Diabetes panel 01/09/25 01/10/25 Range/Units 15:10 06:59 Sodium 136 L 139 (137-145) mmol/L Potassium 3.7 3.6 (3.4-5.0) mmol/L Chloride 105 109 H (98-107) mmol/L Carbon Dioxide 19 L 21 L (22-30) mmol/L BUN 7 4 L (7-17) mg/dL Creatinine 0.49 L 0.59 L (0.7-1.0) mg/dL Glucose 126 H 87 (65-110) mg/dL Calcium 8.4 7.9 L (8.4-10.2) mg/dL AST 926 H 708 H (14-36) U/L ALT 720 H 571 H (6-35) U/L Alkaline Phosphatase 292 H 239 H (38-126) U/L Total Protein 7.0 6.0 L (6.3-8.2) g/dL Albumin 3.6 2.9 L (3.5-5.1) g/dL Calcium panel 01/09/25 01/10/25 Range/Units 15:10 06:59 Calcium 8.4 7.9 L (8.4-10.2) mg/dL Albumin 3.6 2.9 L (3.5-5.1) g/dL Pituitary panel 01/09/25 01/10/25 Range/Units 15:10 06:59 Sodium 136 L 139 (137-145) mmol/L Potassium 3.7 3.6 (3.4-5.0) mmol/L Chloride 105 109 H (98-107) mmol/L Carbon Dioxide 19 L 21 L (22-30) mmol/L BUN 7 4 L (7-17) mg/dL Creatinine 0.49 L 0.59 L (0.7-1.0) mg/dL Glucose 126 H 87 (65-110) mg/dL Calcium 8.4 7.9 L (8.4-10.2) mg/dL Adrenal panel 01/09/25 01/10/25 Range/Units 15:10 06:59 Sodium 136 L 139 (137-145) mmol/L Potassium 3.7 3.6 (3.4-5.0) mmol/L Chloride 105 109 H (98-107) mmol/L Carbon Dioxide 19 L 21 L (22-30) mmol/L BUN 7 4 L (7-17) mg/dL Creatinine 0.49 L 0.59 L (0.7-1.0) mg/dL Glucose 126 H 87 (65-110) mg/dL Calcium 8.4 7.9 L (8.4-10.2) mg/dL Total Bilirubin 5.5 H 6.0 H (0.2-1.3) mg/dL AST 926 H 708 H (14-36) U/L ALT 720 H 571 H (6-35) U/L Alkaline Phosphatase 292 H 239 H (38-126) U/L Total Protein 7.0 6.0 L (6.3-8.2) g/dL Albumin 3.6 2.9 L (3.5-5.1) g/dL All other labs normal. Imaging Additional studies: ITS Impressions Abdomen Ultrasound 01/09/25 18:21 IMPRESSION: Cholelithiasis. Adenomyomatosis of the gallbladder. Otherwise, normal limited abdominal ultrasound. Abdomen/Pelvis CT 01/09/25 18:33 IMPRESSION: 1. No acute abdominal process with no evidence of appendicitis, diverticulitis or intestinal obstruction. 2. Cholelithiasis. 3. Sliding hiatus hernia.
--- NOTE | 2025-01-10 10:34 | WPDGICN ---
Assessment and Plan Assessment and plan (1) Elevated LFTs: Code(s): R79.89 - Other specified abnormal findings of blood chemistry <Constance D. PRATIK JeanN - Last Filed: 01/10/25 10:58> Status: Acute <Constance D. Ted [employer] - Last Filed: 01/10/25 10:58> (2) Cholelithiasis: Qualifiers: Biliary obstruction: without biliary obstruction Cholecystitis presence: without cholecystitis Cholelithiasis location: gallbladder Qualified Code(s): K80.20 - Calculus of gallbladder without cholecystitis without obstruction <Constance D. Ted, [employer] BU[employer]DER HEL[employer] - Last Filed: 01/10/25 10:58> Code(s): K80.20 - Calculus of gallbladder without cholecystitis without obstruction <Constance D. Ted, [employer] BU[employer]DER HEL[employer] - Last Filed: 01/10/25 10:58> Status: Acute <Constance D. Ted [employer] BU[employer] - Last Filed: 01/10/25 10:58> (3) Upper abdominal pain: Code(s): R10.10 - Upper abdominal pain, unspecified <Constance Snyder. Ted [employer] BU[employer]DER [employer] - Last Filed: 01/10/25 10:58> Status: Acute <Constance Snyder. Ted [employer] BU[employer] - Last Filed: 01/10/25 10:58> (4) Hematochezia: Code(s): K92.1 - Melena <Constance Snyder. Ted [employer] - Last Filed: 01/10/25 10:58> Status: Acute <Constance D. Ted, [employer] BUILDER HELPER - Last Filed: 01/10/25 10:58> (5) Diarrhea: Qualifiers: Diarrhea type: presumed infectious Qualified Code(s): R19.7 - Diarrhea, unspecified <Constance D. Ted [employer] BU[employer]DER HEL[employer] - Last Filed: 01/10/25 10:58> Code(s): R19.7 - Diarrhea, unspecified <Constance D. Ted [employer] BU[employer]DER HEL[employer] - Last Filed: 01/10/25 10:58> Status: Acute <Constance D. Ted [employer] BU[employer]DER [employer] - Last Filed: 01/10/25 10:58> Assessment and Plan: 1. Elevated LFTs/BUQ abdominal pain/nausea/vomiting/decreased appetite /Cholelithiasis: Patient denies prior history of liver disease or previously elevated LFTs. Patient states that a few days prior to onset of her acute symptoms of abdominal pain, nausea, vomiting, and diarrhea she had received her flu and hepatitis a vaccine. Labs today show bilirubin 6.0, Indirect bilirubin 1.3, AST 708, ALT 572, alkaline phosphatase 239, albumin 2.9 and lipase 143. Iron panel and ferritin were normal except iron saturation at 11%. Hepatitis a and B were negative but hepatitis C antibody positive. Hepatitis C RNA PCR pending. Imaging showed gallstones within the gallbladder but no indication of biliary obstruction. Ultrasound showed gallstones and adenomyomatosis of the gallbladder. Patient does have many tattoos unclear if this may have been exposure. Liver normal appearing on imaging. prior to admission the patient was having upper abdominal pain that she describes as a cramping sensation that got worse with food intake and improved with bowel movements. This pain had been occurring for 2 weeks. Denies any further episodes of nausea or vomiting since admission. Prior to admission she was having diarrhea with 0-3 liquid urgent bowel movements daily that were typically postprandial. liver workup ordered which will also allow us to workup for possible autoimmune hepatitis versus chronic hepatic etiology versus acute viral imaging shows gallstones but no signs of biliary ductal dilation or obstruction MRCP pending If MRCP normal and symptoms persist may also consider HIDA scan to evaluate gallbladder function Further recommendations to follow workup 2. Hematochezia: Patient has never had a colonoscopy. She admits to trace intermittent rectal bleeding after bowel movements which is thought to be secondary to hemorrhoids. Patient is 44 years old so is due for a screening colonoscopy. Patient can follow up outpatient to discuss scheduling colonoscopy Thank you very much for allowing me to share in the care of this very nice patient. This report may have been done utilizing a voice recognition system. Attempts have been made to correct errors. However, there may be uncorrected grammatical, spelling, and recognition errors present. <Constance Jean APRN - Last Filed: 01/10/25 10:58> GI Consult Note Consult date/time: 01/10/25 10:34 <Constance Jean APRN - Last Filed: 01/10/25 10:58> Reason for consult: Cholelithiasis and elevated LFTs <Constance Jean, [employer] BU[employer]DER HEL[employer] - Last Filed: 01/10/25 10:58> HPI: This is a 44 y/o female with no significant past medical surgical history who presented to the emergency room yesterday with complaints of nausea, vomiting, and diarrhea. GI has been consulted for cholelithiasis and elevated LFTs. Patient states that 2 weeks ago she had an acute onset of upper abdominal pain, decreased appetite, nausea, vomiting and diarrhea. At its worse she was having 0-3 Lip quit postprandial bowel movements that were urgent. Her normal bowel frequency is every 2-3 days without difficulty and typically formed with intermittent episodes of trace rectal bleeding secondary to hemorrhoids. She is on omeprazole at home and states that her reflux is well controlled. Denies any nausea or vomiting since admission. Patient states that her upper abdominal pain is crampy in nature increases with food and improves with bowel movements , this pain is also been occurring for 2 weeks. 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 She has multiple tattoos and denies any recent change or new medications. patient does state that she got her Hepatitis A and flu vaccine a few days prior to onset of symptoms. She denies bloating, odynophagia, dysphagia, regurgitation, early satiety, unexplained weight loss, constipation or melena. Patient is a social drinker smokes half a pack per day in cessation strongly recommended. Patient denies any marijuana use. Family history negative for CRC or IBD. ENDOSCOPY HISTORY: Patient has never had a colonoscopy or EGD LABS AND STOOL STUDIES: LABS 01/10/2025: Sodium 139, potassium 3.6, BUN 4, creatinine 0.59, GFR > 60 WBC is 9, HGB 10, HCT 29, MCV 73, platelets 471 Total bilirubin 6.0, and direct bilirubin 1.3, AST 708, ALT 571, alkaline phosphatase 239, albumin 2.9, calcium 7.9, lipase 143 Iron 51, TIBC 470, iron saturation 11% and ferritin 22.71 Hepatitis A IgM, hepatitis-B surface antigen, hepatitis B IgM core antibody all negative. Hepatitis C antibody reactive, RNA PCR pending LABS 01/09/2025: WBC is 11, HGB 11, HCT 35, MCV 76, platelets 500, INR 1.0. Total bilirubin 5.5, AST 926, ALT 270, alkaline phosphatase 292 and lipase 169 IMAGING: CT abd/pelvis w/contrast 01/09/2025: VISUALIZED LOWER CHEST: Normal. UPPER ABDOMINAL ORGANS: Liver: Normal. Gallbladder: Cholelithiasis. Spleen: Normal. Stomach/duodenum: Small Sliding hiatus hernia. Adrenals: Normal. Kidneys: Normal. PELVIC ORGANS: The bladder is normal. Left ovarian cyst measuring 2.4 cm. BOWEL AND MESENTERY: Colon: no evidence of diverticulitis. Normal appendix. Small Bowel: Normal. No obstruction. Peritoneum/mesentery: No free air or free fluid. No mesenteric lymphadenopathy. RETROPERITONEUM: Normal aorta. No retroperitoneal lymphadenopathy. Bilateral aortic lymph nodes are seen with the largest measures 1.1 cm. MUSCULOSKELETAL: Superficial soft tissues: The superficial soft tissues are normal. Bones: Age appropriate degenerative changes of the spine. Bilateral sacroiliitis. IMPRESSION: 1. No acute abdominal process with no evidence of appendicitis, diverticulitis or intestinal obstruction. 2. Cholelithiasis. 3. Sliding hiatus hernia. Abdominal Ultrasound 01/09/2025 IMPRESSION: Cholelithiasis. Adenomyomatosis of the gallbladder. Otherwise, normal limited abdominal ultrasound. <Constance Jean APRN - Last Filed: 01/10/25 10:58> Review of Systems Constitutional: Constitutional: Reports as per HPI <Constance Jean APRN - Last Filed: 01/10/25 10:58> ENT: Reports as per HPI <Constance Jean APRN - Last Filed: 01/10/25 10:58> Cardiovascular: Cardiovascular: Reports as per HPI, Denies chest pain and Denies dyspnea <Constance Jean APRN - Last Filed: 01/10/25 10:58> Respiratory: Respiratory: Denies cough and Denies dyspnea <Constance Jean APRN - Last Filed: 01/10/25 10:58> Gastrointestinal: Gastrointestinal: Reports as per HPI <Constance Jean APRN - Last Filed: 01/10/25 10:58> Musculoskeletal: Musculoskeletal: Reports as per HPI <Constanceendy Jean APR Last Filed: 01/10/25 10:58> Integumentary/Breasts: Skin/Breast: Reports as per HPI <Constanceendy Jean APR Last Filed: 01/10/25 10:58> Psychiatric: Psychiatric: Reports as per HPI <Constanceendy Jean [employer] Last Filed: 01/10/25 10:58> Endocrine: Endocrine: Reports no additional endocrine complaints <Consatnce SnyderMarvin Jean [employer] BUILDER HELPER Last Filed: 01/10/25 10:58> Hematologic/Lymphatic: Hematologic/Lymphatic: Reports no additional hematologic/lymphatic complaints <Constanceendy Jean Last Filed: 01/10/25 10:58> PMFSH Past Medical History Medical History: Medical History Obesity (BMI 30-39.9) <Constance SnyderMarvin Jean Last Filed: 01/10/25 10:58> Surgical History Surgical History: Surgical History History of x2 <Constance SnyderMarvin Naheedalejandro Last Filed: 01/10/25 10:58> Social History Social History: Social History Smoking packs per day: 17 Smoking cigarettes per day: 340.0 Smoking status: Current every day smoker Tobacco type: cigarettes Second hand tobacco smoke exposure: No Alcohol intake: former Substance use: former Do You Feel Safe in your Home?: Yes Lack of Transportation: No Lack of Food: Never True Current Housing: I Have Housing Concerned About Future Housing: No Difficulty Paying Gas/Electric Bills: No Difficulty Paying for Meds: No Currently Unemployed: No Education: High School Diploma/GED Difficulty w/ Childcare or Family Care: No Spiritual care concerns: No <Cosntance Jean APR Last Filed: 01/10/25 10:58> Meds Home Medications and Allergies Home medications: Home Medications ?Medication ?Instructions ?Recorded ?Confirmed ?Type losartan 50 mg tablet 50 mg PO DAILY 01/09/25 01/09/25 History metoprolol succinate 100 mg 100 mg PO DAILY 01/09/25 01/09/25 History tablet,extended release 24 hr <Constance Jean APRN - Last Filed: 01/10/25 10:58> Allergies/Adverse reactions: Allergies Allergy/AdvReac Type Severity Reaction Status Date / Time Sulfa (Sulfonamide Allergy Hives Verified 01/09/25 13:36 Antibiotics) <Constance Jean APRN - Last Filed: 01/10/25 10:58> Vital Signs Vital Signs - 24 hr 01/09/25 13:32 01/09/25 18:01 01/09/25 18:50 Temperature 97.3 F L 97.9 F Pulse Rate 98 89 99 Respiratory Rate 16 16 16 Blood Pressure 135/91 H 121/58 L 116/61 Pulse Oximetry 100 100 98 Oxygen Delivery Room Air 01/09/25 21:04 01/09/25 23:03 01/09/25 23:23 Temperature 98.4 F 98.5 F Pulse Rate 110 H 95 101 H Respiratory Rate 24 H 15 18 Blood Pressure 154/82 H 148/88 H 137/88 Pulse Oximetry 100 99 99 Oxygen Delivery 01/09/25 23:45 01/10/25 04:47 01/10/25 04:47 Temperature 97.8 F Pulse Rate 87 104 H Respiratory Rate 14 16 Blood Pressure 147/81 H 154/86 H Pulse Oximetry 98 100 Oxygen Delivery Room Air 01/10/25 04:49 01/10/25 08:00 01/10/25 08:29 Temperature Pulse Rate 98 87 Respiratory Rate 16 Blood Pressure 143/91 H Pulse Oximetry 100 Oxygen Delivery Room Air <Constance Jean APRN - Last Filed: 01/10/25 10:58> Exam Const: General: cooperative, healthy appearing, comfortable, no acute distress and well developed <Constance Jean APRN - Last Filed: 01/10/25 10:58> Orientation/consciousness: oriented to person, oriented to place, oriented to time and patient oriented x3 <Constance Jean APRN - Last Filed: 01/10/25 10:58> HENMT: Head: normal to inspection, normocephalic and atraumatic <Constance SnyderMarvin Naheedalejandro [employer] BU[employer]DER HELPER - Last Filed: 01/10/25 10:58> Mouth: Yes Normal oral and palatal mucosa present and Yes moist mucous membranes <Constance SnyderMarvin Naheedalejandro [employer] BUILDER HELPER - Last Filed: 01/10/25 10:58> Eyes: General: appearance normal, both eyes and all related structures <Constance SnyderMarvin Naheedalejandro [employer] BUILDER HELPER - Last Filed: 01/10/25 10:58> Conjunctivae: conjunctivae normal <Constance SnyderMarvin Naheedalejandro [facility] Last Filed: 01/10/25 10:58> Sclera: scleral abnormality (icterus) bilateral <Constance SnyderMarvin Naheedalejandro [employer] BU[employer]DER HEL[employer] Last Filed: 01/10/25 10:58> Pupils: Equal, round and reactive pupils present <Constance SnyderMarvin Jean [employer]M BUILDER HELPER Last Filed: 01/10/25 10:58> Neck: Neck: normal visual inspection <Constance SnyderMarvin Naheedalejandro [employer] BU[employer] HEL[employer] Last Filed: 01/10/25 10:58> Chest: Chest palpation & inspection: normal inspection of the chest <Constance Umberto Jean [employer] BUILDER HELPER Last Filed: 01/10/25 10:58> Resp: Effort & Inspection: normal respiratory effort and able to speak in complete sentences <Constance SnyderMarvin Naheedalejandro [employer] BU[employer]DER HEL[employer] Last Filed: 01/10/25 10:58> Auscultation: clear to auscultation bilaterally <Constance SnyderMarvin Jean [facility] Last Filed: 01/10/25 10:58> Cardio: Jugular venous distension: no JVD <Constance SnyderMarvin Jean [facility] Last Filed: 01/10/25 10:58> Rate: regular rate <Constance SnyderMarvin Jean APRN - Last Filed: 01/10/25 10:58> Rhythm: regular rhythm <[facility] Last Filed: 01/10/25 10:58> Heart sounds: S1 normal heart sound present and S2 normal heart sound present <Constance SnyderMarvin Jean APRN - Last Filed: 01/10/25 10:58> GI: Inspection: normal to inspection <Constance FarfanPRATIK allenN - Last Filed: 01/10/25 10:58> GI Palp: Yes Soft to palpation, No Tenderness to palpation present (GI), Yes Guarding due to palpation present (GI) and Yes No hepatosplenomegaly present <Constance FarfanPRATIK allenN - Last Filed: 01/10/25 10:58> Auscultation: abnormal bowel sounds (hyperactive) <Constance Farfanalejandro [employer] BUILDER HELPER - Last Filed: 01/10/25 10:58> Rectal Exam: deferred <Constance Farfanalejandro [employer] BUILDER HELPER - Last Filed: 01/10/25 10:58> Skin: General skin exam: no rashes or lesions noted <Constance Farfanalejandro FORM BUILDER HELPER - Last Filed: 01/10/25 10:58> Other: jaundice <Constance Farfanalejandro [employer]M BUILDER HELPER - Last Filed: 01/10/25 10:58> Neuro: General: oriented to person, oriented to place, oriented to time and patient oriented x3 <Constance [facility]fanPRATIK [facility] Last Filed: 01/10/25 10:58> Cranial nerves: Yes Equal, round and reactive pupils present <Constance FarfanSAVAGE allen - Last Filed: 01/10/25 10:58> Speech: normal speech <Constance FarfanPRATIK [facility]en[facility] Last Filed: 01/10/25 10:58> Extrem: General: normal to inspection and no clubbing, cyanosis or edema <Constance Shipman PRATIK JeanN - Last Filed: 01/10/25 10:58> Psych: Appearance: grossly normal and well kempt <Constance Shipman PRATIK JeanN - Last Filed: 01/10/25 10:58> Affect: normal affect <Constance Shipman SAVAGE Jean - Last Filed: 01/10/25 10:58> Results Labs CBC & Chem 7: 01/10/25 06:59 01/10/25 06:59 <Constance Shipman PRATIK JeanN - Last Filed: 01/10/25 10:58> Labs: Short CBC 01/09/25 01/10/25 Range/Units 15:10 06:59 WBC 11.0 H 8.6 (4.5-10.0) K/mm3 Hgb 11.4 L 9.7 L (12.0-15.0) g/dL Hct 35.4 L 29.1 L (37.0-47.0) % Plt Count 500 H 471 H (150-375) k/mm3 BMP 01/09/25 01/10/25 15:10 06:59 Sodium 136 L 139 Potassium 3.7 3.6 Chloride 105 109 H Carbon Dioxide 19 L 21 L BUN 7 4 L Creatinine 0.49 L 0.59 L Glucose 126 H 87 Calcium 8.4 7.9 L Liver Function 01/09/25 01/10/25 Range/Units 15:10 06:59 Total Bilirubin 5.5 H 6.0 H (0.2-1.3) mg/dL AST 926 H 708 H (14-36) U/L ALT 720 H 571 H (6-35) U/L Alkaline Phosphatase 292 H 239 H (38-126) U/L Albumin 3.6 2.9 L (3.5-5.1) g/dL Urine 01/09/25 Range/Units 15:10 Urine Color Dark yellow (Yellow) Urine Appearance Clear (Clear) Urine pH 5.5 (5.0-9.0) Ur Specific [place] 1.022 (1.001-1.035) Urine Protein Trace (Negative) mg/dL Urine Glucose (UA) Negative (Negative) mg/dL <Constance Jean, FORM BUILDER HELPER - Last Filed: 01/10/25 10:58>
[2025-01-10] MEDS: ACETAMINOPHEN 325 MG TABLET 650 MG PO (15:49)
--- NOTE | 2025-01-10 16:38 | PM.IMPN ---
Progress Note: A&P Assessment and Plan (1) Upper abdominal pain: Code(s): R10.10 - Upper abdominal pain, unspecified Status: Acute Assessment and Plan: Patient presents with abdominal pain mostly in the RUQ and found to have elevated LFTs. AST 926, ALT 720, AP 292 and TB 5.5, TP 7 and Albumin 3.6. Lipase is normal. UPT negative. COVID, Influenza PCR negative. Abd US showing cholelithiasis and adenomyomatosis of the gallbladder. CT of the abdomen and pelvis with and without contrast showing cholelithiasis but no acute findings. MRCP has been ordered. Repeat LFTs are improving except total bilirubin is now 6. Indirect bili is 1.3. Hepatitis panel showed hepatitis-C antibody reactive. GI consulted and appreciate their input. Acute hepatitis workup is in process. Will add HIV. Patient agrees to have HIV testing. Follow-up on studies and imaging. (2) Elevated LFTs: Code(s): R79.89 - Other specified abnormal findings of blood chemistry Status: Acute Assessment and Plan: As above (3) Hypertension: Code(s): I10 - Essential (primary) hypertension Status: Acute Assessment and Plan: Patient's blood pressure was reviewed on 01/10 Blood pressure remains well controlled. Metoprolol resumed. Losartan on hold. Will continue to monitor. (4) Nicotine dependence: Code(s): F17.200 - Nicotine dependence, unspecified, uncomplicated Status: Acute Assessment and Plan: Patient was educated about the benefits of smoking cessation. (5) Cholelithiasis: Qualifiers: Biliary obstruction: without biliary obstruction Cholecystitis presence: without cholecystitis Cholelithiasis location: gallbladder Qualified Code(s): K80.20 - Calculus of gallbladder without cholecystitis without obstruction Code(s): K80.20 - Calculus of gallbladder without cholecystitis without obstruction Status: Acute Assessment and Plan: As above Plan Metabolic acidosis - Patient with mild non gap metabolic acidosis with serum bicarb of 19. Man[place] related to above. Repeat values are improved. 1. Code status. Full 2. VTE prophylaxis. SCDs; SHER Subjective Date/time seen: 01/10/25 16:38 Interval history: 44yo female with HTN and tobacco abuse who is here for abdominal pain. Abdominal pain is better today. No nausea, vomiting or diarrhea. Passing flatus. No chest pain or shortness of breath. No history of hepatitis C that she is aware of. History of IV drug use and she last used about 2 years ago. She drinks alcohol only on the weekends but denies excessive alcohol use. Exam Narrative: AF 97.4 110/80 77 18 100% ra Gen - NARD Chest - CTA bilaterally, nml RR CV - RRR S1/S2 Abd - Soft, NT/ND, Positive BS Ext - No pedal edema Psych - Nml mood and affect Skin - Warm and dry Objective Data Vital Signs Vital Signs: Vital Signs - 24 hr 01/09/25 18:01 01/09/25 18:50 01/09/25 21:04 Temperature 97.9 F 98.4 F Pulse Rate 89 99 110 H Respiratory Rate 16 16 24 H Blood Pressure 121/58 L 116/61 154/82 H Pulse Oximetry 100 98 100 Oxygen Delivery 01/09/25 23:03 01/09/25 23:23 01/09/25 23:45 Temperature 98.5 F Pulse Rate 95 101 H Respiratory Rate 15 18 Blood Pressure 148/88 H 137/88 Pulse Oximetry 99 99 Oxygen Delivery Room Air 01/10/25 04:47 01/10/25 04:47 01/10/25 04:49 Temperature 97.8 F Pulse Rate 87 104 H 98 Respiratory Rate 14 16 16 Blood Pressure 147/81 H 154/86 H 143/91 H Pulse Oximetry 98 100 100 Oxygen Delivery 01/10/25 08:00 01/10/25 08:29 01/10/25 12:34 Temperature Pulse Rate 87 Respiratory Rate Blood Pressure Pulse Oximetry 97 Oxygen Delivery Room Air Room Air 01/10/25 14:00 Temperature 97.4 F L Pulse Rate 77 Respiratory Rate 18 Blood Pressure 110/80 Pulse Oximetry 100 Oxygen Delivery Intake/Output Intake/Output: Intake & Output 01/07/25 01/08/25 01/09/25 01/10/25 23:59 23:59 23:59 23:59 Intake Total 1050 100 Balance 1050 100 Meds/Results Medications: Active Medications Generic Name Dose Route Start Last Admin Trade Name Freq PRN Reason Stop Dose Admin Acetaminophen 650 mg 01/09/25 22:39 01/10/25 15:49 Acetaminophen 325 Mg Tablet PO 650 mg Q6H PRN Administration Mild Pain (1-3) or Fever Heparin Sodium (Porcine) 5,000 units 01/10/25 09:00 01/10/25 08:29 Heparin Sodium 5,000 Units/Ml Vial SUB-Q 5,000 units Q12HR SHER Administration Piperacillin/Tazobactam/Dextrose 3.375 gm in 50 mls @ 100 mls/hr 01/10/25 00:00 01/10/25 11:50 Zosyn 3.375 Gm/Ns 50 Ml IVPB 100 mls/hr Q6HR SHRE Administration Sodium Chloride 1,000 mls @ 100 mls/hr 01/09/25 22:40 01/10/25 08:33 Normal Saline Iv IV CONT 100 mls/hr .Q10H SHER Administration Metoprolol Succinate 100 mg 01/10/25 09:00 01/10/25 08:29 Metoprolol Succinate Ext Rel 100 Mg Tabcr PO 100 mg DAILY SHER Administration Morphine Sulfate 2 mg 01/09/25 21:20 01/09/25 23:52 Morphine Sulfate (*Crx) 2 Mg/Ml Inj IV PUSH 2 mg Q2H PRN Administration Pain Rated 7-10 Ondansetron HCl 4 mg 01/09/25 21:20 Ondansetron Inj 4 Mg/2 Ml Vial IV PUSH Q4H PRN Nausea Prochlorperazine Edisylate 10 mg 01/09/25 22:33 Prochlorperazine Edisylate 10 Mg/2 Ml Vial IV PUSH Q6H PRN Nausea And Vomiting Radiology Results: ITS Impressions Abdomen Ultrasound 01/09/25 18:21 IMPRESSION: Cholelithiasis. Adenomyomatosis of the gallbladder. Otherwise, normal limited abdominal ultrasound. Abdomen/Pelvis CT 01/09/25 18:33 IMPRESSION: 1. No acute abdominal process with no evidence of appendicitis, diverticulitis or intestinal obstruction. 2. Cholelithiasis. 3. Sliding hiatus hernia. Labs Labs: Laboratory Results - last 24 hr 01/10/25 06:59 WBC 8.6 RBC 3.98 L Hgb 9.7 L Hct 29.1 L MCV 73.1 L MCH 24.4 L MCHC 33.3 RDW 20.1 H Plt Count 471 H MPV 10.6 H Immature Gran % (Auto) 0.4 Neut % (Auto) 62.9 Lymph % (Auto) 22.8 [place] % (Auto) 10.4 H Eos % (Auto) 2.9 Baso % (Auto) 0.6 Lymph # (Auto) 1.95 [place] # (Auto) 0.9 H Eos # (Auto) 0.3 Baso # (Auto) 0.1 Abs Immat Gran (auto) 0.03 Absolute Neuts (auto) 5.4 Absolute Nucleated RBC 0.000 Band Neutrophils % Not Reportable Nucleated RBC % 0.0 Platelet Estimate Adequate Anisocytosis 1+ Microcytosis 1+ Schistocytes None seen Sodium 139 Potassium 3.6 Chloride 109 H Carbon Dioxide 21 L Anion Gap 9 BUN 4 L Creatinine 0.59 L Estim Creat Clear Calc 108 Estimated GFR > 60 Glucose 87 Calcium 7.9 L Iron 51 TIBC 470 H % Saturation 11 L Ferritin 22.70 Total Bilirubin 6.0 H Indirect Bilirubin 1.3 H AST 708 H ALT 571 H Alkaline Phosphatase 239 H Total Protein 6.0 L Albumin 2.9 L Lipase 143 Hepatitis A IgM Ab Negative Hep Bs Antigen Negative Hep B Core IgM Ab Negative Hepatitis C Ab Screen Reactive
[2025-01-11] MEDS: PIPERACILLN/TAZ 3.375GM/NS50ML 3.375 GM/50 ML BAG IVPB ×5 (00:23→23:22)
[2025-01-11] MEDS: SODIUM CHLORIDE 0.9% IV 1,000 ML 100 ML IV CONT (02:16)
[2025-01-11 06:00] VITALS: BP 123/82; PULSE 83; RESP 18; TEMP 36.7; O2SAT 98
[2025-01-11 06:58] LABS: Basophils Absolute Auto 0.1 K/mm3 (0.0-0.1); Basophils Percent Auto 0.7 % (0.2-1.2); Eosinophils Absolute Auto 0.2 K/mm3 (0-0.3); Eosinophils Percent Auto 2.6 % (0-4.4); Hematocrit 30.7 % (37.0-47.0); Hemoglobin 9.9 g/dL (12.0-15.0); Immature Granulocyte Absolute 0.03 K/mm3 (0.00-0.031); Immature Granulocyte Percent A 0.4 % (0-0.5); Lymphocytes Absolute Auto 1.67 K/mm3 (0.9-3.2); Lymphocytes Percent Auto 23.1 % (18.3-44.2); Mean Corpuscular HGB Conc 32.2 g/dl (32-36); Mean Corpuscular Volume 74.5 fl (80-100); Mean Platelet Volume 10.5 fl (7.4-10.4); Monocytes Absolute Auto 0.9 K/mm3 (0.1-0.6); Monocytes Percent Auto 11.7 % (2.6-8.5); Neutrophils Absolute Auto 4.5 K/mm3 (1.3-6.7); Neutrophils Percent Auto 61.5 % (45.5-73.1); Platelet Count Result 451 k/mm3 (150-375); Red Blood Count 4.12 M/mm3 (4.2-5.4); Red Cell Distribution Width 21.2 % (11.5-14.5); White Blood Count 7.2 K/mm3 (4.5-10.0)
[2025-01-11 07:11] LABS: Alanine Aminotransferase 546 U/L (6-35); Albumin Level 3.1 g/dL (3.5-5.1); Alkaline Phosphatase 231 U/L (38-126); Anion Gap 10 mmol/L (4-12); Bilirubin,Total 6.4 mg/dL (0.2-1.3); Blood Urea Nitrogen 3 mg/dL (7-17); Calcium 8.1 mg/dL (8.4-10.2); Carbon Dioxide 20 mmol/L (22-30); Chloride 108 mmol/L (98-107); Estimated CRCL calculation 123 ml/min; Estimated Glomerular Filt Rate > 60; Glucose 84 mg/dL (65-110); Potassium 3.7 mmol/L (3.4-5.0); Sodium 138 mmol/L (137-145)
[2025-01-11 07:24] LABS: Aspartate Amino Transferase 684 U/L (14-36)
[2025-01-11 07:24] LABS: CMV IgM Antibody <30.00 AU/mL
[2025-01-11 07:47] LABS: HIV 1/2 Ab P24 Ag Result Negative (Negative)
[2025-01-11 08:02] LABS: Platelet Estimate Increased (Adequate)
[2025-01-11 08:03] LABS: Anisocytosis 1+; Ovalocytes 1+
[2025-01-11 08:04] LABS: Crenated RBC 1+; Schistocytes None Seen
[2025-01-11 08:57] VITALS: PULSE 73
[2025-01-11] MEDS: HEPARIN SODIUM 5,000 UNITS/ML VIAL 5000 UNITS SUB-Q ×2 (08:57→21:05)
[2025-01-11] MEDS: METOPROLOL SUCCINATE EXT REL 100 MG TABCR PO (08:57)
--- NOTE | 2025-01-11 09:10 | PM.IMPN ---
Progress Note: A&P Assessment and Plan (1) Acute cholecystitis: Code(s): K81.0 - Acute cholecystitis Status: Acute Assessment and Plan: Patient presented with abdominal pain mostly in the RUQ and found to have elevated LFTs. AST 926, ALT 720, AP 292 and TB 5.5, TP 7 and Albumin 3.6. Lipase was normal. UPT negative. COVID, Influenza PCR negative. Abd US showing cholelithiasis and adenomyomatosis of the gallbladder. CT of the abdomen and pelvis with and without contrast showing cholelithiasis but no acute findings. MRCP showing a GS at the neck of the gallbladder with edematous-appearing gallbladder wall thickening and periportal edema suspicious for acute cholecystitis. No choledocholithiasis or intra/extrahepatic biliary ductal dilation. Repeat LFTs are improving except total bilirubin is now 6.4. Hepatitis panel showed hepatitis-C antibody reactive. GI and General surgery consulted and appreciate their input. Acute hepatitis workup is in process. Patient will need cholecystectomy. (2) Upper abdominal pain: Code(s): R10.10 - Upper abdominal pain, unspecified Status: Acute Assessment and Plan: As above. Pain related to impacted GS in the neck of the GB with acute cholecystitis. (3) Cholestatic hepatitis: Code(s): K75.89 - Other specified inflammatory liver diseases Status: Acute Assessment and Plan: Most likely related to cholestatic hepatits but may have a secondary issue as well. Acute hepatitis w/u in process. HIV negative. Hepatitis-C antibody reactive with viral load pending. CMV IgM negative. (4) Acute UTI: Code(s): N39.0 - Urinary tract infection, site not specified Status: Acute Assessment and Plan: UA is consistent with UTI. UCx collected. Zosyn started. UCx growing EColi sensitive to Zosyn. Follow (5) Hypertension: Code(s): I10 - Essential (primary) hypertension Status: Acute Assessment and Plan: Patient's blood pressure was reviewed on 01/11 Blood pressure remains well controlled. Metoprolol resumed. Losartan on hold. Will continue to monitor. 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 HIV negative. Hepatitis B Ag and core IgM negative. Hepatitis C Ab reactive. Viral load pending. Patient was educated about the benefits of abstaining from drug use. (7) Nicotine dependence: Code(s): F17.200 - Nicotine dependence, unspecified, uncomplicated Status: Acute Assessment and Plan: Patient was educated about the benefits of smoking cessation. (8) Cholelithiasis: Qualifiers: Biliary obstruction: without biliary obstruction Cholecystitis presence: without cholecystitis Cholelithiasis location: gallbladder Qualified Code(s): K80.20 - Calculus of gallbladder without cholecystitis without obstruction Code(s): K80.20 - Calculus of gallbladder without cholecystitis without obstruction Status: Acute Assessment and Plan: As above (9) Hepatitis C antibody positive: Code(s): R76.8 - Other specified abnormal immunological findings in serum Status: Acute Assessment and Plan: As above Plan Metabolic acidosis - Patient with mild non gap metabolic acidosis with serum bicarb of 19. [place] related to above. Repeat values are improved. 1. Code status. Full 2. VTE prophylaxis. SCDs; SHER Subjective Date/time seen: 01/11/25 09:10 Interval history: 44yo female with HTN and tobacco abuse who is here for abdominal pain. Some mild nausea but still able to tolerate oral intake. No vomiting or diarrhea. Slept poorly last night. Abdominal pain much better but having bloating. Feels anxious at times. Exam Narrative: AF 98.0 123/82 73 18 98% ra Gen - NARD Chest - CTA bilaterally, nml RR CV - RRR S1/S2 Abd - Soft, NT/ND, Positive BS Ext - No pedal edema Psych - Nml mood and affect Skin - Warm and dry Objective Data Vital Signs Vital Signs: Vital Signs - 24 hr 01/10/25 12:34 01/10/25 14:00 01/10/25 20:30 Temperature 97.4 F L Pulse Rate 77 80 Respiratory Rate 18 18 Blood Pressure 110/80 Pulse Oximetry 97 100 100 Oxygen Delivery Room Air Room Air 01/10/25 22:00 01/11/25 06:00 01/11/25 08:57 Temperature 98.2 F 98.0 F Pulse Rate 80 83 73 Respiratory Rate 18 18 Blood Pressure 144/69 H 123/82 Pulse Oximetry 100 98 Oxygen Delivery Intake/Output Intake/Output: Intake & Output 01/08/25 01/09/25 01/10/2501/11/25 23:59 23:59 23:59 23:59 Intake Total 1050 1071.7 1050 Balance 1050 1071.7 1050 Meds/Results Medications: Active Medications Generic Name Dose Route Start Last Admin Trade Name Freq PRN Reason Stop Dose Admin Acetaminophen 650 mg 01/09/25 22:39 01/10/25 15:49 Acetaminophen 325 Mg Tablet PO 650 mg Q6H PRN Administration Mild Pain (1-3) or Fever Heparin Sodium (Porcine) 5,000 units 01/10/25 09:00 01/11/25 08:57 Heparin Sodium 5,000 Units/Ml Vial SUB-Q 5,000 units Q12HR SHER Administration Piperacillin/Tazobactam/Dextrose 3.375 gm in 50 mls @ 100 mls/hr 01/10/25 00:00 01/11/25 05:35 Zosyn 3.375 Gm/Ns 50 Ml IVPB 100 mls/hr Q6HR SHER Administration Sodium Chloride 1,000 mls @ 100 mls/hr 01/09/25 22:40 01/11/25 02:16 Normal Saline Iv IV CONT 100 mls/hr .Q10H SHER Administration Metoprolol Succinate 100 mg 01/10/25 09:00 01/11/25 08:57 Metoprolol Succinate Ext Rel 100 Mg Tabcr PO 100 mg DAILY SHER Administration Morphine Sulfate 2 mg 01/09/25 21:20 01/09/25 23:52 Morphine Sulfate (*Crx) 2 Mg/Ml Inj IV PUSH 2 mg Q2H PRN Administration Pain Rated 7-10 Ondansetron HCl 4 mg 01/09/25 21:20 Ondansetron Inj 4 Mg/2 Ml Vial IV PUSH Q4H PRN Nausea Prochlorperazine Edisylate 10 mg 01/09/25 22:33 Prochlorperazine Edisylate 10 Mg/2 Ml Vial IV PUSH Q6H PRN Nausea And Vomiting Radiology Results: ITS Impressions Abdomen Ultrasound 01/09/25 18:21 IMPRESSION: Cholelithiasis. Adenomyomatosis of the gallbladder. Otherwise, normal limited abdominal ultrasound. Abdomen/Pelvis CT 01/09/25 18:33 IMPRESSION: 1. No acute abdominal process with no evidence of appendicitis, diverticulitis or intestinal obstruction. 2. Cholelithiasis. 3. Sliding hiatus hernia. Labs Labs: Laboratory Results - last 24 hr 01/10/25 01/10/25 01/11/25 06:59 11:07 06:31 WBC 7.2 RBC 4.12 L Hgb 9.9 L Hct 30.7 L MCV 74.5 L MCH 24.0 L MCHC 32.2 RDW 21.2 H Plt Count 451 H MPV 10.5 H Immature Gran % (Auto) 0.4 Neut % (Auto) 61.5 Lymph % (Auto) 23.1 [place] % (Auto) 11.7 H Eos % (Auto) 2.6 Baso % (Auto) 0.7 Lymph # (Auto) 1.67 [place] # (Auto) 0.9 H Eos # (Auto) 0.2 Baso # (Auto) 0.1 Abs Immat Gran (auto) 0.03 Absolute Neuts (auto) 4.5 Absolute Nucleated RBC 0.000 Band Neutrophils % Not Reportable Nucleated RBC % 0.0 Platelet Estimate Increased Anisocytosis 1+ Ovalocytes 1+ Crenated Cell 1+ Schistocytes None seen Sodium 138 Potassium 3.7 Chloride 108 H Carbon Dioxide 20 L Anion Gap 10 BUN 3 L Creatinine 0.51 L Estim Creat Clear Calc 123 Estimated GFR > 60 Glucose 84 Calcium 8.1 L Iron 51 TIBC 470 H % Saturation 11 L Ferritin 22.70 Total Bilirubin 6.4 H AST 684 H ALT 546 H Alkaline Phosphatase 231 H Total Protein 7.0 Albumin 3.1 L CMV IgM Ab <30.00 Hepatitis A IgM Ab Negative Hep Bs Antigen Negative Hep B Core IgM Ab Negative Hepatitis C Ab Screen Reactive HIV 1&2 Ab/P24 Ag 4thGn Negative
--- NOTE | 2025-01-11 10:20 | WPDGIPROGNO ---
Progress Note: A&P Assessment and Plan (1) Cholestatic hepatitis: Code(s): K75.89 - Other specified inflammatory liver diseases Status: Acute Assessment and Plan: wonder if could be from hepatitis C- AB positive, awaiting for RNA but also + cholelithiasis, pending mrcp to assess if cholecystitis, choledocholithiasis, etc given jaundice hiv negative (2) Hepatitis C antibody positive: Code(s): R76.8 - Other specified abnormal immunological findings in serum Status: Acute Assessment and Plan: pending RNA she is former addict (3) Elevated LFTs: Code(s): R79.89 - Other specified abnormal findings of blood chemistry Status: Acute Assessment and Plan: monitor (4) Upper abdominal pain: Code(s): R10.10 - Upper abdominal pain, unspecified Status: Acute (5) Methamphetamine abuse in remission: Code(s): F15.11 - Other stimulant abuse, in remission Status: Acute (6) Cholelithiasis: Qualifiers: Cholelithiasis location: gallbladder Cholecystitis presence: without cholecystitis Biliary obstruction: without biliary obstruction Qualified Code(s): K80.20 - Calculus of gallbladder without cholecystitis without obstruction Code(s): K80.20 - Calculus of gallbladder without cholecystitis without obstruction Status: Acute Assessment and Plan: surgery also on board pending mrcp Subjective Date/time seen: 01/11/25 10:20 Interval history: still some abdominal discomfort but better just completed mrcp Review of Systems Review of Systems: All systems reviewed & are unremarkable except as noted in HPI and below Exam Const: General: comfortable and no acute distress HENMT: Face/Nose/Sinus: Normal nares present Eyes: Sclera: scleral abnormality (mild icteric sclerae) Neck: Neck: supple Resp: Auscultation: clear to auscultation bilaterally Cardio: Rate: regular rate Rhythm: regular rhythm GI: Inspection: distended GI Palp: Yes Soft to palpation and Yes Tenderness to palpation present (GI) (mild ttp, no rebound) Auscultation: normal bowel sounds Skin: General skin exam: no rashes or lesions noted Neuro: Speech: normal speech Motor exam (neuro): 5/5 motor strength present throughout Extrem: General: normal to inspection Psych: Mental Status: mental status grossly normal Objective Data Vital Signs Vital Signs: Vital Signs - 24 hr 01/10/25 12:34 01/10/25 14:00 01/10/25 20:30 Temperature 97.4 F L Pulse Rate 77 80 Respiratory Rate 18 18 Blood Pressure 110/80 Pulse Oximetry 97 100 100 Oxygen Delivery Room Air Room Air 01/10/25 22:00 01/11/25 06:00 01/11/25 08:57 Temperature 98.2 F 98.0 F Pulse Rate 80 83 73 Respiratory Rate 18 18 Blood Pressure 144/69 H 123/82 Pulse Oximetry 100 98 Oxygen Delivery Intake/Output Intake/Output: Intake & Output 01/08/25 01/09/25 01/10/25 01/11/25 23:59 23:59 23:59 23:59 Intake Total 1050 1071.7 1290 Balance 1050 1071.7 1290 Meds/Results Medications: Active Medications Generic Name Dose Route Start Last Admin Trade Name Freq PRN Reason Stop Dose Admin Acetaminophen 650 mg 01/09/25 22:39 01/10/25 15:49 Acetaminophen 325 Mg Tablet PO 650 mg Q6H PRN Administration Mild Pain (1-3) or Fever Heparin Sodium (Porcine) 5,000 units 01/10/25 09:00 01/11/25 08:57 Heparin Sodium 5,000 Units/Ml Vial SUB-Q 5,000 units Q12HR SHER Administration Piperacillin/Tazobactam/Dextrose 3.375 gm in 50 mls @ 100 mls/hr 01/10/25 00:00 01/11/25 05:35 Zosyn 3.375 Gm/Ns 50 Ml IVPB 100 mls/hr Q6HR SHER Administration Sodium Chloride 1,000 mls @ 100 mls/hr 01/09/25 22:40 01/11/25 02:16 Normal Saline Iv IV CONT 100 mls/hr .Q10H SHER Administration Metoprolol Succinate 100 mg 01/10/25 09:00 01/11/25 08:57 Metoprolol Succinate Ext Rel 100 Mg Tabcr PO 100 mg DAILY SHER Administration Morphine Sulfate 2 mg 01/09/25 21:20 01/09/25 23:52 Morphine Sulfate (*Crx) 2 Mg/Ml Inj IV PUSH 2 mg Q2H PRN Administration Pain Rated 7-10 Ondansetron HCl 4 mg 01/09/25 21:20 Ondansetron Inj 4 Mg/2 Ml Vial IV PUSH Q4H PRN Nausea Prochlorperazine Edisylate 10 mg 01/09/25 22:33 Prochlorperazine Edisylate 10 Mg/2 Ml Vial IV PUSH Q6H PRN Nausea And Vomiting Radiology Results: ITS Impressions Abdomen Ultrasound 01/09/25 18:21 IMPRESSION: Cholelithiasis. Adenomyomatosis of the gallbladder. Otherwise, normal limited abdominal ultrasound. Abdomen/Pelvis CT 01/09/25 18:33 IMPRESSION: 1. No acute abdominal process with no evidence of appendicitis, diverticulitis or intestinal obstruction. 2. Cholelithiasis. 3. Sliding hiatus hernia. Labs Labs: Laboratory Results - last 24 hr 01/10/25 01/11/25 11:07 06:31 WBC 7.2 RBC 4.12 L Hgb 9.9 L Hct 30.7 L MCV 74.5 L MCH 24.0 L MCHC 32.2 RDW 21.2 H Plt Count 451 H MPV 10.5 H Immature Gran % (Auto) 0.4 Neut % (Auto) 61.5 Lymph % (Auto) 23.1 [place] % (Auto) 11.7 H Eos % (Auto) 2.6 Baso % (Auto) 0.7 Lymph # (Auto) 1.67 [place] # (Auto) 0.9 H Eos # (Auto) 0.2 Baso # (Auto) 0.1 Abs Immat Gran (auto) 0.03 Absolute Neuts (auto) 4.5 Absolute Nucleated RBC 0.000 Band Neutrophils % Not Reportable Nucleated RBC % 0.0 Platelet Estimate Increased Anisocytosis 1+ Ovalocytes 1+ Crenated Cell 1+ Schistocytes None seen Sodium 138 Potassium 3.7 Chloride 108 H Carbon Dioxide 20 L Anion Gap 10 BUN 3 L Creatinine 0.51 L Estim Creat Clear Calc 123 Estimated GFR > 60 Glucose 84 Calcium 8.1 L Total Bilirubin 6.4 H AST 684 H ALT 546 H Alkaline Phosphatase 231 H Total Protein 7.0 Albumin 3.1 L CMV IgM Ab <30.00 HIV 1&2 Ab/P24 Ag 4thGn Negative
[2025-01-11] MEDS: NICOTINE (*PBKC) 7 MG PATCH 1 PATCH TRANSDERM (11:55)
[2025-01-11 13:39] VITALS: BP 134/85; PULSE 74; RESP 18; TEMP 37.2; O2SAT 100
[2025-01-11] MEDS: PROCHLORPERAZINE EDISYLATE 10 MG/2 ML VIAL IV PUSH (14:08)
--- NOTE | 2025-01-11 15:18 | PM.PNGS ---
Progress Note: A&P Assessment and Plan (1) Cholelithiasis with chronic cholecystitis: Qualifiers: Cholelithiasis location: gallbladder Biliary obstruction: without biliary obstruction Qualified Code(s): K80.10 - Calculus of gallbladder with chronic cholecystitis without obstruction Code(s): K80.10 - Calculus of gallbladder with chronic cholecystitis without obstruction Status: Acute Assessment and Plan: MRCP shows evidence of cholecystitis and gallstones. Patient lives in [place] and is doing better. Tolerating full liquids now. Consider advancing to low-fat diet. If she can tolerate diet and remain comfortable, would be best for her to return to home and connect with surgeon there for cholecystectomy. (2) Hyperbilirubinemia: Code(s): E80.6 - Other disorders of bilirubin metabolism Status: Acute Assessment and Plan: Bilirubin still elevated although liver function tests otherwise are decreasing (3) Acute UTI: Code(s): N39.0 - Urinary tract infection, site not specified Status: Acute Assessment and Plan: On Zosyn for E coli positive urine culture Subjective Subjective Date/Time Seen: 01/11/25 15:18 Patient reports: no new complaints, feels better, pain is less, tolerating liquids well and afebrile Review of Systems Review of Systems: All systems reviewed & are unremarkable except as noted in HPI and below (HPI) Exam Const: General: comfortable and no acute distress Orientation/consciousness: patient oriented x3 GI: Inspection: normal to inspection and non-distended GI Palp: Yes Soft to palpation, Yes Tenderness to palpation present (GI) (Slight right upper quadrant tenderness), No Guarding due to palpation present (GI), No Hernia present, No Palpable mass present and No Rebound tenderness present Auscultation: normal bowel sounds Neuro: General: patient oriented x3 and no focal motor deficits Extrem: General: no calf tenderness and no edema Psych: Affect: normal affect Insight: Good insight present (Psych) Judgement: Good judgement present (Psych) Objective Data Vital Signs Vital Signs: Vital Signs - 24 hr 01/10/25 20:30 01/10/25 22:00 01/11/25 06:00 Temperature 36.8 C 36.7 C Pulse Rate 80 80 83 Respiratory Rate 18 18 18 Blood Pressure 144/69 H 123/82 Pulse Oximetry 100 100 98 Oxygen Delivery Room Air 01/11/25 08:00 01/11/25 08:57 01/11/25 13:39 Temperature 37.2 C Pulse Rate 73 74 Respiratory Rate 18 Blood Pressure 134/85 Pulse Oximetry 100 Oxygen Delivery Room Air Intake/Output Intake/Output: Intake & Output 01/08/25 01/09/25 01/10/25 01/11/25 23:59 23:59 23:59 23:59 Intake Total 1050 1071.7 1460 Balance 1050 1071.7 1460 Meds/Results Medications: Active Medications Generic Name Dose Route Start Last Admin Trade Name Freq PRN Reason Stop Dose Admin Acetaminophen 650 mg 01/09/25 22:39 01/10/25 15:49 Acetaminophen 325 Mg Tablet PO 650 mg Q6H PRN Administration Mild Pain (1-3) or Fever Heparin Sodium (Porcine) 5,000 units 01/10/25 09:00 01/11/25 08:57 Heparin Sodium 5,000 Units/Ml Vial SUB-Q 5,000 units Q12HR SHER Administration Piperacillin/Tazobactam/Dextrose 3.375 gm in 50 mls @ 100 mls/hr 01/10/25 00:00 01/11/25 11:55 Zosyn 3.375 Gm/Ns 50 Ml IVPB 100 mls/hr Q6HR SHER Administration Sodium Chloride 1,000 mls @ 100 mls/hr 01/09/25 22:40 01/11/25 02:16 Normal Saline Iv IV CONT 100 mls/hr .Q10H SHER Administration Metoprolol Succinate 100 mg 01/10/25 09:00 01/11/25 08:57 Metoprolol Succinate Ext Rel 100 Mg Tabcr PO 100 mg DAILY SHER Administration Morphine Sulfate 2 mg 01/09/25 21:20 01/09/25 23:52 Morphine Sulfate (*Crx) 2 Mg/Ml Inj IV PUSH 2 mg Q2H PRN Administration Pain Rated 7-10 Nicotine 1 patch 01/11/25 11:25 01/11/25 11:55 Nicotine (*Pbkc) 7 Mg Patch TRANSDERM 1 patch DAILY SHER Administration Ondansetron HCl 4 mg 01/09/25 21:20 Ondansetron Inj 4 Mg/2 Ml Vial IV PUSH Q4H PRN Nausea Prochlorperazine Edisylate 10 mg 01/09/25 22:33 01/11/25 14:08 Prochlorperazine Edisylate 10 Mg/2 Ml Vial IV PUSH 10 mg Q6H PRN Administration Nausea And Vomiting Radiology Results: ITS Impressions Abdomen Ultrasound 01/09/25 18:21 IMPRESSION: Cholelithiasis. Adenomyomatosis of the gallbladder. Otherwise, normal limited abdominal ultrasound. Abdomen/Pelvis CT 01/09/25 18:33 IMPRESSION: 1. No acute abdominal process with no evidence of appendicitis, diverticulitis or intestinal obstruction. 2. Cholelithiasis. 3. Sliding hiatus hernia. MRCP 01/11/25 10:28 IMPRESSION: 1. Gallstone at the neck of the gallbladder with edematous-appearing gallbladder wall thickening and periportal edema suspicious for acute cholecystitis. No choledocholithiasis or intra/extrahepatic biliary ductal dilation. Labs Labs: Laboratory Results - last 24 hr 01/10/25 01/11/25 11:07 06:31 WBC 7.2 RBC 4.12 L Hgb 9.9 L Hct 30.7 L MCV 74.5 L MCH 24.0 L MCHC 32.2 RDW 21.2 H Plt Count 451 H MPV 10.5 H Immature Gran % (Auto) 0.4 Neut % (Auto) 61.5 Lymph % (Auto) 23.1 [place] % (Auto) 11.7 H Eos % (Auto) 2.6 Baso % (Auto) 0.7 Lymph # (Auto) 1.67 [place] # (Auto) 0.9 H Eos # (Auto) 0.2 Baso # (Auto) 0.1 Abs Immat Gran (auto) 0.03 Absolute Neuts (auto) 4.5 Absolute Nucleated RBC 0.000 Band Neutrophils % Not Reportable Nucleated RBC % 0.0 Platelet Estimate Increased Anisocytosis 1+ Ovalocytes 1+ Crenated Cell 1+ Schistocytes None seen Sodium 138 Potassium 3.7 Chloride 108 H Carbon Dioxide 20 L Anion Gap 10 BUN 3 L Creatinine 0.51 L Estim Creat Clear Calc 123 Estimated GFR > 60 Glucose 84 Calcium 8.1 L Total Bilirubin 6.4 H AST 684 H ALT 546 H Alkaline Phosphatase 231 H Total Protein 7.0 Albumin 3.1 L CMV IgM Ab <30.00 HIV 1&2 Ab/P24 Ag 4thGn Negative
[2025-01-11 21:36] VITALS: BP 133/81; PULSE 75; RESP 18; TEMP 36.3; O2SAT 99
[2025-01-12] MEDS: PIPERACILLN/TAZ 3.375GM/NS50ML 3.375 GM/50 ML BAG IVPB ×2 (05:35→11:44)
[2025-01-12 05:55] VITALS: BP 133/60; PULSE 72; RESP 18; TEMP 36.3; O2SAT 98
[2025-01-12 07:25] LABS: Basophils Percent Auto 0.5 % (0.2-1.2); Eosinophils Absolute Auto 0.2 K/mm3 (0-0.3); Eosinophils Percent Auto 2.1 % (0-4.4); Hematocrit 28.8 % (37.0-47.0); Hemoglobin 9.7 g/dL (12.0-15.0); Immature Granulocyte Absolute 0.03 K/mm3 (0.00-0.031); Immature Granulocyte Percent A 0.4 % (0-0.5); Lymphocytes Absolute Auto 2.23 K/mm3 (0.9-3.2); Lymphocytes Percent Auto 28.9 % (18.3-44.2); Mean Corpuscular HGB Conc 33.7 g/dl (32-36); Mean Corpuscular Hemoglobin 24.5 pg (26-34); Mean Corpuscular Volume 72.7 fl (80-100); Mean Platelet Volume 10.7 fl (7.4-10.4); Monocytes Absolute Auto 0.9 K/mm3 (0.1-0.6); Neutrophils Absolute Auto 4.4 K/mm3 (1.3-6.7); Neutrophils Percent Auto 57.1 % (45.5-73.1); Platelet Count Result 466 k/mm3 (150-375); Red Blood Count 3.96 M/mm3 (4.2-5.4); Red Cell Distribution Width 21.1 % (11.5-14.5); White Blood Count 7.7 K/mm3 (4.5-10.0)
[2025-01-12 07:38] LABS: Alanine Aminotransferase 460 U/L (6-35); Alkaline Phosphatase 215 U/L (38-126); Anion Gap 10 mmol/L (4-12); Aspartate Amino Transferase 561 U/L (14-36); Bilirubin,Total 5.3 mg/dL (0.2-1.3); Blood Urea Nitrogen 3 mg/dL (7-17); Calcium 8.3 mg/dL (8.4-10.2); Carbon Dioxide 22 mmol/L (22-30); Chloride 107 mmol/L (98-107); Estimated CRCL calculation 113 ml/min; Estimated Glomerular Filt Rate > 60; Glucose 91 mg/dL (65-110); Potassium 3.7 mmol/L (3.4-5.0); Sodium 139 mmol/L (137-145)
--- NOTE | 2025-01-12 07:53 | PM.IMPN ---
Progress Note: A&P Assessment and Plan (1) Acute cholecystitis: Code(s): K81.0 - Acute cholecystitis Status: Acute Assessment and Plan: Patient presented with abdominal pain mostly in the RUQ and found to have elevated LFTs. AST 926, ALT 720, AP 292 and TB 5.5, TP 7 and Albumin 3.6. Lipase was normal. UPT negative. COVID, Influenza PCR negative. Abd US showing cholelithiasis and adenomyomatosis of the gallbladder. CT of the abdomen and pelvis with and without contrast showing cholelithiasis but no acute findings. MRCP showing a GS at the neck of the gallbladder with edematous-appearing gallbladder wall thickening and periportal edema suspicious for acute cholecystitis. No choledocholithiasis or intra/extrahepatic biliary ductal dilation. Repeat LFTs are improving except total bilirubin is now 6.4. Hepatitis panel showed hepatitis-C antibody reactive. GI and General surgery consulted and appreciate their input. Acute hepatitis workup is in process. Patient will need cholecystectomy. (2) Upper abdominal pain: Code(s): R10.10 - Upper abdominal pain, unspecified Status: Acute Assessment and Plan: As above. Pain related to impacted GS in the neck of the GB with acute cholecystitis. (3) Cholestatic hepatitis: Code(s): K75.89 - Other specified inflammatory liver diseases Status: Acute Assessment and Plan: Most likely related to cholestatic hepatits but may have a secondary issue as well. Acute hepatitis w/u in process. HIV negative. Hepatitis-C antibody reactive with viral load pending. CMV IgM negative. (4) Acute UTI: Code(s): N39.0 - Urinary tract infection, site not specified Status: Acute Assessment and Plan: UA is consistent with UTI. UCx collected. Zosyn started. UCx growing EColi sensitive to Zosyn. Follow (5) Hypertension: Code(s): I10 - Essential (primary) hypertension Status: Acute Assessment and Plan: Patient's blood pressure was reviewed on 01/11 Blood pressure remains well controlled. Metoprolol resumed. Losartan on hold. Will continue to monitor. 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 HIV negative. Hepatitis B Ag and core IgM negative. Hepatitis C Ab reactive. Viral load pending. Patient was educated about the benefits of abstaining from drug use. (7) Nicotine dependence: Code(s): F17.200 - Nicotine dependence, unspecified, uncomplicated Status: Acute Assessment and Plan: Patient was educated about the benefits of smoking cessation. (8) Cholelithiasis: Qualifiers: Cholelithiasis location: gallbladder Cholecystitis presence: without cholecystitis Biliary obstruction: without biliary obstruction Qualified Code(s): K80.20 - Calculus of gallbladder without cholecystitis without obstruction Code(s): K80.20 - Calculus of gallbladder without cholecystitis without obstruction Status: Acute Assessment and Plan: As above (9) Hepatitis C antibody positive: Code(s): R76.8 - Other specified abnormal immunological findings in serum Status: Acute Assessment and Plan: As above Plan Metabolic acidosis - Patient with mild non gap metabolic acidosis with serum bicarb of 19. [place] related to above. Repeat values are improved. 1. Code status. Full 2. VTE prophylaxis. SCDs; SHER Subjective Date/time seen: 01/12/25 07:53 Interval history: 44yo female with HTN and tobacco abuse who is here for abdominal pain. Some mild nausea but still able to tolerate oral intake. No vomiting or diarrhea. Slept poorly last night. Abdominal pain much better but having bloating. Feels anxious at times. Exam Narrative: AF 97.4 133/50 72 18 98% ra Gen - NARD Chest - CTA bilaterally, nml RR CV - RRR S1/S2 Abd - Soft, NT/ND, Positive BS Ext - No pedal edema Psych - Nml mood and affect Skin - Warm and dry Objective Data Vital Signs Vital Signs: Vital Signs - 24 hr 01/11/25 08:00 01/11/25 08:57 01/11/25 13:39 Temperature 98.9 F Pulse Rate 73 74 Respiratory Rate 18 Blood Pressure 134/85 Pulse Oximetry 100 Oxygen Delivery Room Air 01/11/25 21:05 01/11/25 21:36 01/12/25 05:55 Temperature 97.3 F L 97.4 F L Pulse Rate 75 72 Respiratory Rate 18 18 Blood Pressure 133/81 133/60 Pulse Oximetry 99 98 Oxygen Delivery Room Air Intake/Output Intake/Output: Intake & Output 01/09/25 01/10/25 01/11/25 01/12/25 23:59 23:59 23:59 23:59 Intake Total 1050 1071.7 2760 350 Balance 1050 1071.7 2760 350 Meds/Results Medications: Active Medications Generic Name Dose Route Start Last Admin Trade Name Freq PRN Reason Stop Dose Admin Acetaminophen 650 mg 01/09/25 22:39 01/10/25 15:49 Acetaminophen 325 Mg Tablet PO 650 mg Q6H PRN Administration Mild Pain (1-3) or Fever Heparin Sodium (Porcine) 5,000 units 01/10/25 09:00 01/11/25 21:05 Heparin Sodium 5,000 Units/Ml Vial SUB-Q 5,000 units Q12HR SHER Administration Piperacillin/Tazobactam/Dextrose 3.375 gm in 50 mls @ 100 mls/hr 01/10/25 00:00 01/12/25 06:05 Zosyn 3.375 Gm/Ns 50 Ml IVPB Infused Q6HR SHER Infusion Metoprolol Succinate 100 mg 01/10/25 09:00 01/11/25 08:57 Metoprolol Succinate Ext Rel 100 Mg Tabcr PO 100 mg DAILY SHER Administration Morphine Sulfate 2 mg 01/09/25 21:20 01/09/25 23:52 Morphine Sulfate (*Crx) 2 Mg/Ml Inj IV PUSH 2 mg Q2H PRN Administration Pain Rated 7-10 Nicotine 1 patch 01/11/25 11:25 01/11/25 11:55 Nicotine (*Pbkc) 7 Mg Patch TRANSDERM 1 patch DAILY SHER Administration Ondansetron HCl 4 mg 01/09/25 21:20 Ondansetron Inj 4 Mg/2 Ml Vial IV PUSH Q4H PRN Nausea Prochlorperazine Edisylate 10 mg 01/09/25 22:33 01/11/25 14:08 Prochlorperazine Edisylate 10 Mg/2 Ml Vial IV PUSH 10 mg Q6H PRN Administration Nausea And Vomiting Radiology Results: ITS Impressions Abdomen Ultrasound 01/09/25 18:21 IMPRESSION: Cholelithiasis. Adenomyomatosis of the gallbladder. Otherwise, normal limited abdominal ultrasound. Abdomen/Pelvis CT 01/09/25 18:33 IMPRESSION: 1. No acute abdominal process with no evidence of appendicitis, diverticulitis or intestinal obstruction. 2. Cholelithiasis. 3. Sliding hiatus hernia. MRCP 01/11/25 10:28 IMPRESSION: 1. Gallstone at the neck of the gallbladder with edematous-appearing gallbladder wall thickening and periportal edema suspicious for acute cholecystitis. No choledocholithiasis or intra/extrahepatic biliary ductal dilation. Labs Labs: Laboratory Results - last 24 hr 01/11/25 01/12/25 06:31 06:59 WBC 7.2 RBC 4.12 L Hgb 9.9 L Hct 30.7 L MCV 74.5 L MCH 24.0 L MCHC 32.2 RDW 21.2 H Plt Count 451 H MPV 10.5 H Immature Gran % (Auto) 0.4 Neut % (Auto) 61.5 Lymph % (Auto) 23.1 [place] % (Auto) 11.7 H Eos % (Auto) 2.6 Baso % (Auto) 0.7 Lymph # (Auto) 1.67 [place] # (Auto) 0.9 H Eos # (Auto) 0.2 Baso # (Auto) 0.1 Abs Immat Gran (auto) 0.03 Absolute Neuts (auto) 4.5 Absolute Nucleated RBC 0.000 Band Neutrophils % Not Reportable Nucleated RBC % 0.0 Platelet Estimate Increased Anisocytosis 1+ Ovalocytes 1+ Crenated Cell 1+ Schistocytes None seen Sodium 139 Potassium 3.7 Chloride 107 Carbon Dioxide 22 Anion Gap 10 BUN 3 L Creatinine 0.56 L Estim Creat Clear Calc 113 Estimated GFR > 60 Glucose 91 Calcium 8.3 L Total Bilirubin 5.3 H AST 561 H ALT 460 H Alkaline Phosphatase 215 H Total Protein 6.0 L Albumin 3.0 L
[2025-01-12] MEDS: NICOTINE (*PBKC) 7 MG PATCH 1 PATCH TRANSDERM (08:10)
[2025-01-12 08:11] VITALS: PULSE 62
[2025-01-12] MEDS: METOPROLOL SUCCINATE EXT REL 100 MG TABCR PO (08:11)
[2025-01-12] MEDS: HEPARIN SODIUM 5,000 UNITS/ML VIAL 5000 UNITS SUB-Q (08:11)
[2025-01-12 09:00] LABS: Hypochromasia 2+; Macrocytosis 2+ (NORMAL); Platelet Estimate Increased (Adequate); Target Cells 1+
[2025-01-12 09:01] LABS: Schistocytes None Seen
--- NOTE | 2025-01-12 10:23 | WPDGIPROGNO ---
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 (2) Hepatitis C antibody positive: Code(s): R76.8 - Other specified abnormal immunological findings in serum Status: Acute Assessment and Plan: pending RNA she is former addict will need follow-up with her doctor if + (3) Elevated LFTs: Code(s): R79.89 - Other specified abnormal findings of blood chemistry Status: Acute Assessment and Plan: monitor (4) Upper abdominal pain: Code(s): R10.10 - Upper abdominal pain, unspecified Status: Acute (5) Methamphetamine abuse in remission: Code(s): F15.11 - Other stimulant abuse, in remission Status: Acute Subjective Date/time seen: 01/12/25 10:23 Interval history: no more pain today and doing better Review of Systems Review of Systems: All systems reviewed & are unremarkable except as noted in HPI and below Exam Const: General: comfortable and no acute distress Orientation/consciousness: patient oriented x3 HENMT: Face/Nose/Sinus: Normal nares present Eyes: General: appearance normal, both eyes and all related structures Neck: Neck: supple Resp: Effort & Inspection: normal respiratory effort Cardio: Rate: regular rate GI: Inspection: normal to inspection and non-distended GI Palp: Yes Soft to palpation, Yes Tenderness to palpation present (GI) (Slight right upper quadrant tenderness) and No Guarding due to palpation present (GI) Auscultation: normal bowel sounds Skin: General skin exam: no rashes or lesions noted Other: tattoos Neuro: General: patient oriented x3 and no focal motor deficits Extrem: General: no edema Psych: Affect: normal affect Insight: Good insight present (Psych) Judgement: Good judgement present (Psych) Objective Data Vital Signs Vital Signs: Vital Signs - 24 hr 01/11/25 13:39 01/11/25 21:05 01/11/25 21:36 Temperature 98.9 F 97.3 F L Pulse Rate 74 75 Respiratory Rate 18 18 Blood Pressure 134/85 133/81 Pulse Oximetry 100 99 Oxygen Delivery Room Air 01/12/25 05:55 01/12/25 08:11 Temperature 97.4 F L Pulse Rate 72 62 Respiratory Rate 18 Blood Pressure 133/60 Pulse Oximetry 98 Oxygen Delivery Intake/Output Intake/Output: Intake & Output 01/09/25 01/10/25 01/11/25 01/12/25 23:59 23:59 23:59 23:59 Intake Total 1050 1071.7 2760 350 Balance 1050 1071.7 2760 350 Meds/Results Medications: Active Medications Generic Name Dose Route Start Last Admin Trade Name Freq PRN Reason Stop Dose Admin Acetaminophen 650 mg 01/09/25 22:39 01/10/25 15:49 Acetaminophen 325 Mg Tablet PO 650 mg Q6H PRN Administration Mild Pain (1-3) or Fever Heparin Sodium (Porcine) 5,000 units 01/10/25 09:00 01/12/25 08:11 Heparin Sodium 5,000 Units/Ml Vial SUB-Q 5,000 units Q12HR SHER Administration Piperacillin/Tazobactam/Dextrose 3.375 gm in 50 mls @ 100 mls/hr 01/10/25 00:00 01/12/25 06:05 Zosyn 3.375 Gm/Ns 50 Ml IVPB Infused Q6HR SHER Infusion Metoprolol Succinate 100 mg 01/10/25 09:00 01/12/25 08:11 Metoprolol Succinate Ext Rel 100 Mg Tabcr PO 100 mg DAILY SHER Administration Morphine Sulfate 2 mg 01/09/25 21:20 01/09/25 23:52 Morphine Sulfate (*Crx) 2 Mg/Ml Inj IV PUSH 2 mg Q2H PRN Administration Pain Rated 7-10 Nicotine 1 patch 01/11/25 11:25 01/12/25 08:10 Nicotine (*Pbkc) 7 Mg Patch TRANSDERM 1 patch DAILY SHER Administration Ondansetron HCl 4 mg 01/09/25 21:20 Ondansetron Inj 4 Mg/2 Ml Vial IV PUSH Q4H PRN Nausea Prochlorperazine Edisylate 10 mg 01/09/25 22:33 01/11/25 14:08 Prochlorperazine Edisylate 10 Mg/2 Ml Vial IV PUSH 10 mg Q6H PRN Administration Nausea And Vomiting Radiology Results: ITS Impressions Abdomen Ultrasound 01/09/25 18:21 IMPRESSION: Cholelithiasis. Adenomyomatosis of the gallbladder. Otherwise, normal limited abdominal ultrasound. Abdomen/Pelvis CT 01/09/25 18:33 IMPRESSION: 1. No acute abdominal process with no evidence of appendicitis, diverticulitis or intestinal obstruction. 2. Cholelithiasis. 3. Sliding hiatus hernia. MRCP 01/11/25 10:28 IMPRESSION: 1. Gallstone at the neck of the gallbladder with edematous-appearing gallbladder wall thickening and periportal edema suspicious for acute cholecystitis. No choledocholithiasis or intra/extrahepatic biliary ductal dilation. Labs Labs: Laboratory Results - last 24 hr 01/12/25 06:59 WBC 7.7 RBC 3.96 L Hgb 9.7 L Hct 28.8 L MCV 72.7 L MCH 24.5 L MCHC 33.7 RDW 21.1 H Plt Count 466 H MPV 10.7 H Immature Gran % (Auto) 0.4 Neut % (Auto) 57.1 Lymph % (Auto) 28.9 [place] % (Auto) 11.0 H Eos % (Auto) 2.1 Baso % (Auto) 0.5 Lymph # (Auto) 2.23 [place] # (Auto) 0.9 H Eos # (Auto) 0.2 Baso # (Auto) 0.0 Abs Immat Gran (auto) 0.03 Absolute Neuts (auto) 4.4 Absolute Nucleated RBC 0.000 Band Neutrophils % Not Reportable Nucleated RBC % 0.0 Platelet Estimate Increased Hypochromasia 2+ Macrocytosis 2+ Target Cells 1+ Schistocytes None seen Sodium 139 Potassium 3.7 Chloride 107 Carbon Dioxide 22 Anion Gap 10 BUN 3 L Creatinine 0.56 L Estim Creat Clear Calc 113 Estimated GFR > 60 Glucose 91 Calcium 8.3 L Total Bilirubin 5.3 H AST 561 H ALT 460 H Alkaline Phosphatase 215 H Total Protein 6.0 L Albumin 3.0 L
--- NOTE | 2025-01-12 12:17 | PM.DS ---
DS: Admitting Diagnosis Discharge Date 01/12/25 Admitting Diagnosis Abdominal pain DS: Discharge Diagnosis Discharge Diagnosis (1) Acute cholecystitis: Code(s): K81.0 - Acute cholecystitis Status: Acute (2) Upper abdominal pain: Code(s): R10.10 - Upper abdominal pain, unspecified Status: Acute (3) Cholestatic hepatitis: Code(s): K75.89 - Other specified inflammatory liver diseases Status: Acute (4) Acute UTI: Code(s): N39.0 - Urinary tract infection, site not specified Status: Acute (5) Hypertension: Code(s): I10 - Essential (primary) hypertension Status: Acute (6) Methamphetamine abuse in remission: Code(s): F15.11 - Other stimulant abuse, in remission Status: Acute (7) Nicotine dependence: Code(s): F17.200 - Nicotine dependence, unspecified, uncomplicated Status: Acute (8) Cholelithiasis: Qualifiers: Cholelithiasis location: gallbladder Cholecystitis presence: without cholecystitis Biliary obstruction: without biliary obstruction Qualified Code(s): K80.20 - Calculus of gallbladder without cholecystitis without obstruction Code(s): K80.20 - Calculus of gallbladder without cholecystitis without obstruction Status: Acute (9) Hepatitis C antibody positive: Code(s): R76.8 - Other specified abnormal immunological findings in serum Status: Acute DS: Summary Hospital Course Reason for hospitalization: 44yo female with HTN and tobacco abuse who is here for abdominal pain. Please see H&P for details. Hospital Course: Patient presented with abdominal pain mostly in the RUQ and found to have elevated LFTs. AST 926, ALT 720, AP 292 and TB 5.5, TP 7 and Albumin 3.6. Lipase was normal. UPT negative. COVID, Influenza PCR negative. Abd US showing cholelithiasis and adenomyomatosis of the gallbladder. CT of the abdomen and pelvis with and without contrast showing cholelithiasis but no acute findings. MRCP showing a gallstone at the neck of the gallbladder with edematous-appearing gallbladder wall thickening and periportal edema suspicious for acute cholecystitis. No choledocholithiasis or intra/extrahepatic biliary ductal dilation. Repeat LFTs are improving. Hepatitis panel ws negative except for hepatitis-C antibody reactive with viral load pending. GI and General surgery consulted and appreciate their input. Acute hepatitis workup is in process. Elevated LFTs most likely related to cholestatic hepatitis. HIV negative. CMV IgM negative. UA was consistent with UTI. UCx collected. Zosyn started for acute cholecystitis and for UTI. UCx growing EColi sensitive to Zosyn. Patient's blood pressure was monitored. Metoprolol resumed. Losartan on hold. Blood pressure remained well controlled. Patient has a history of IV drug use and she last used about 2 years ago. Patient was educated about the benefits of abstaining from drug use. Patient was educated about the benefits of smoking cessation. Diet was started and slowly advanced to a low fat diet which she tolerated well. General surgery felt the patient could be discharged home and follow up with her doctor to arrange for an outpatient cholecystectomy. She feels ready for discharge. The patient overall did well and was able to be discharged home on 01/12/2025. Status at Discharge Cognitive/behavioral status at discharge: stable Time Spent with Patient Time attestation: Total time spent providing and/or coordinating discharge services: 34 minutes Time spent: Greater than 30 minutes Exam Narrative: AF 97.4 133/60 72 18 98% ra Gen - NARD Chest - CTA bilaterally, nml RR CV - RRR S1/S2 Abd - Soft, NT/ND, Positive BS Ext - No pedal edema Psych - Nml mood and affect Skin - Warm and dry DS: Data Data Completed and Pending Labs on day of discharge: Labs from last 24 hours 01/12/25 06:59 WBC 7.7 RBC 3.96 L Hgb 9.7 L Hct 28.8 L MCV 72.7 L MCH 24.5 L MCHC 33.7 RDW 21.1 H Plt Count 466 H MPV 10.7 H Immature Gran % (Auto) 0.4 Neut % (Auto) 57.1 Lymph % (Auto) 28.9 [place] % (Auto) 11.0 H Eos % (Auto) 2.1 Baso % (Auto) 0.5 Lymph # (Auto) 2.23 [place] # (Auto) 0.9 H Eos # (Auto) 0.2 Baso # (Auto) 0.0 Abs Immat Gran (auto) 0.03 Absolute Neuts (auto) 4.4 Absolute Nucleated RBC 0.000 Band Neutrophils % Not Reportable Nucleated RBC % 0.0 Platelet Estimate Increased Hypochromasia 2+ Macrocytosis 2+ Target Cells 1+ Schistocytes None seen Sodium 139 Potassium 3.7 Chloride 107 Carbon Dioxide 22 Anion Gap 10 BUN 3 L Creatinine 0.56 L Estim Creat Clear Calc 113 Estimated GFR > 60 Glucose 91 Calcium 8.3 L Total Bilirubin 5.3 H AST 561 H ALT 460 H Alkaline Phosphatase 215 H Total Protein 6.0 L Albumin 3.0 L Discharge Plan Discharge Attending physician on discharge: Alexandr Resendiz Consulting providers: Eber Carlos; Lee Warren Discharging Clinician: Alexandr Resendiz Anticipated Discharge Date/Time: 01/12/25 12:27 Patient Disposition: Home, Self-Care Activity: as tolerated Diet: low fat Discharge Instructions: Check blood pressure 1 to 2 times a day. Record and bring into your doctor for review. Call your doctor if your blood pressure is greater than 180/110. Please complete your antibiotic course even if you are starting to feel well. Contact your doctor or call 911 and come to the Emergency Room if you have recurrent abdominal pain or other worrisome symptoms. Follow-up with your primary care provider in 1-2 weeks. Please call for appointment. -- Please have your doctor request the medical record from [facility] -- Please have your doctor order repeat liver function panel -- Please have your doctor arrange for a surgery consult for an outpatient cholecystectomy. Thank you for using [facility] for your health care needs. Patient Instructions: Antibiotic Form Patient Language: [place] Stand Alone Forms: General Discharge Information Follow-up/Referrals: PHYSICIAN NOT ON STAFF,NONSTAFF [Primary Care Provider] - Discharge Medications: New amoxicillin-pot clavulanate 875-125 mg tablet 1 tablet PO Q12H Qty: 15 0RF Continued metoprolol succinate 100 mg tablet extended release 24 hr 100 mg PO DAILY Held losartan 50 mg tablet 50 mg PO DAILY Hold Instructions: HOLD - resume when okay with your doctor Date of admission: 01/11/25 16:39 Primary Care Provider: PHYSICIAN NOT ON STAFF,NONSTAFF Admitting Provider: Aly Martinez Attending physician on admission: Aly Martinez Condition: Stable Hospitalist MIPS Heart Failure (Exclusion) Patient has history of Heart Transplant or Left Ventricular Assistive Device?: No IF YES, STOP HERE Heart Failure (Qualifier) Patient has current or prior documentation of LVEF less than or equal to 40%, or mod/servere depressed LVSF?: No IF NO, STOP HERE
--- NOTE | 2025-01-12 14:33 | PM.PNGS ---
Progress Note: A&P Assessment and Plan (1) Cholelithiasis with chronic cholecystitis: Qualifiers: Cholelithiasis location: gallbladder Biliary obstruction: without biliary obstruction Qualified Code(s): K80.10 - Calculus of gallbladder with chronic cholecystitis without obstruction Code(s): K80.10 - Calculus of gallbladder with chronic cholecystitis without obstruction Status: Acute Assessment and Plan: Much improved. MRCP shows no choledocholithiasis but evidence of gallstones and cholecystitis. Patient prefers to return home and have surgery near her home and [place]. I agree that this would be best. Will watch her again today and continue IV antibiotics. Plan to discharge tomorrow on oral antibiotics. She has someone to drive her [address] truck home. (2) Hyperbilirubinemia: Code(s): E80.6 - Other disorders of bilirubin metabolism Status: Acute Assessment and Plan: Decreased to 5.3 today. (3) Acute UTI: Code(s): N39.0 - Urinary tract infection, site not specified Status: Acute Assessment and Plan: On Zosyn for E coli positive urine culture Subjective Subjective Date/Time Seen: 01/12/25 14:33 Patient reports: feels better, pain is less (No abdominal pain, tolerating oral intake, has not taken any pain medication.), tolerating a regular diet (Low-fat diet), voiding w/o difficulty, bowel movement and afebrile Review of Systems Review of Systems: All systems reviewed & are unremarkable except as noted in HPI and below (HPI) Exam Const: General: comfortable and no acute distress Orientation/consciousness: patient oriented x3 GI: Inspection: non-distended GI Palp: Yes Soft to palpation, No Tenderness to palpation present (GI), No Guarding due to palpation present (GI) and No Rebound tenderness present Auscultation: normal bowel sounds Neuro: General: patient oriented x3 and no focal motor deficits Extrem: General: no calf tenderness and no edema Psych: Affect: normal affect Insight: Good insight present (Psych) Judgement: Good judgement present (Psych) Objective Data Vital Signs Vital Signs: Vital Signs - 24 hr 01/11/25 21:05 01/11/25 21:36 01/12/25 05:55 Temperature 36.3 C L 36.3 C L Pulse Rate 75 72 Respiratory Rate 18 18 Blood Pressure 133/81 133/60 Pulse Oximetry 99 98 Oxygen Delivery Room Air 01/12/25 08:00 01/12/25 08:11 Temperature Pulse Rate 62 Respiratory Rate Blood Pressure Pulse Oximetry Oxygen Delivery Room Air Intake/Output Intake/Output: Intake & Output 01/09/25 01/10/25 01/11/25 01/12/25 23:59 23:59 23:59 23:59 Intake Total 1050 1071.7 2760 590 Balance 1050 1071.7 2760 590 Meds/Results Medications: Active Medications Generic Name Dose Route Start Last Admin Trade Name Freq PRN Reason Stop Dose Admin Acetaminophen 650 mg 01/09/25 22:39 01/10/25 15:49 Acetaminophen 325 Mg Tablet PO 650 mg Q6H PRN Administration Mild Pain (1-3) or Fever Heparin Sodium (Porcine) 5,000 units 01/10/25 09:00 01/12/25 08:11 Heparin Sodium 5,000 Units/Ml Vial SUB-Q 5,000 units Q12HR SHER Administration Piperacillin/Tazobactam/Dextrose 3.375 gm in 50 mls @ 100 mls/hr 01/10/25 00:00 01/12/25 11:44 Zosyn 3.375 Gm/Ns 50 Ml IVPB 100 mls/hr Q6HR SHER Administration Metoprolol Succinate 100 mg 01/10/25 09:00 01/12/25 08:11 Metoprolol Succinate Ext Rel 100 Mg Tabcr PO 100 mg DAILY SHER Administration Morphine Sulfate 2 mg 01/09/25 21:20 01/09/25 23:52 Morphine Sulfate (*Crx) 2 Mg/Ml Inj IV PUSH 2 mg Q2H PRN Administration Pain Rated 7-10 Ondansetron HCl 4 mg 01/09/25 21:20 Ondansetron Inj 4 Mg/2 Ml Vial IV PUSH Q4H PRN Nausea Prochlorperazine Edisylate 10 mg 01/09/25 22:33 01/11/25 14:08 Prochlorperazine Edisylate 10 Mg/2 Ml Vial IV PUSH 10 mg Q6H PRN Administration Nausea And Vomiting Radiology Results: ITS Impressions Abdomen Ultrasound 01/09/25 18:21 IMPRESSION: Cholelithiasis. Adenomyomatosis of the gallbladder. Otherwise, normal limited abdominal ultrasound. Abdomen/Pelvis CT 01/09/25 18:33 IMPRESSION: 1. No acute abdominal process with no evidence of appendicitis, diverticulitis or intestinal obstruction. 2. Cholelithiasis. 3. Sliding hiatus hernia. MRCP 01/11/25 10:28 IMPRESSION: 1. Gallstone at the neck of the gallbladder with edematous-appearing gallbladder wall thickening and periportal edema suspicious for acute cholecystitis. No choledocholithiasis or intra/extrahepatic biliary ductal dilation. Labs Labs: Laboratory Results - last 24 hr 01/12/25 06:59 WBC 7.7 RBC 3.96 L Hgb 9.7 L Hct 28.8 L MCV 72.7 L MCH 24.5 L MCHC 33.7 RDW 21.1 H Plt Count 466 H MPV 10.7 H Immature Gran % (Auto) 0.4 Neut % (Auto) 57.1 Lymph % (Auto) 28.9 [place] % (Auto) 11.0 H Eos % (Auto) 2.1 Baso % (Auto) 0.5 Lymph # (Auto) 2.23 [place] # (Auto) 0.9 H Eos # (Auto) 0.2 Baso # (Auto) 0.0 Abs Immat Gran (auto) 0.03 Absolute Neuts (auto) 4.4 Absolute Nucleated RBC 0.000 Band Neutrophils % Not Reportable Nucleated RBC % 0.0 Platelet Estimate Increased Hypochromasia 2+ Macrocytosis 2+ Target Cells 1+ Schistocytes None seen Sodium 139 Potassium 3.7 Chloride 107 Carbon Dioxide 22 Anion Gap 10 BUN 3 L Creatinine 0.56 L Estim Creat Clear Calc 113 Estimated GFR > 60 Glucose 91 Calcium 8.3 L Total Bilirubin 5.3 H AST 561 H ALT 460 H Alkaline Phosphatase 215 H Total Protein 6.0 L Albumin 3.0 L
[2025-01-13 08:29] LABS: Alpha Fetoprotein Tumor Marker 18.3 ng/mL
[2025-01-13 14:59] LABS: Hepatitis C RNA, Quant PCR 2160000 IU/mL (NOT DETECTED)
[2025-01-13 15:14] LABS: Alpha-1-Antitrypsin, QN 217 mg/dL (83-199); Ceruloplasmin 29 mg/dL (14-48)
[2025-01-13 21:34] LABS: CMV DNA Quant PCR IU/mL Not Detected (Not Detected); Cytomegalovirus DNA Quant PCR Not Detected Log IU/mL (Not Detected)
[2025-01-15 11:04] LABS: Actin Antibody (IgG) <20 U (<20)
[2025-01-15 15:58] LABS: ALT 523 U/L (6-29); Alpha-2-Macroglobulin 180 mg/dL (106-279); Apolipoprotein A1 51 mg/dL (101-198); Fibrosis Score 0.93; Fibrosis Stage F4; GGT 355 U/L (3-55); Haptoglobin 81 mg/dL (43-212); Necroinflammat Act Grade A3; Reference ID 5367423; Total Bilirubin 6.1 mg/dL (0.2-1.2)
[2025-01-16 20:53] LABS: Mitochondrial (M2) Ab (IgG) <20.0 U
== END 2025-01-12 14:00 | disposition home or self-care (01) ==
LOC: ANHED 16:58 → ANH3MEDSUR 22:26
PROVIDERS: Nurse Practitioner Family; Physician Assistant; Admitting Provider Internal Medicine; Emergency Provider Emergency Medicine; Visit Provider Internal Medicine
DX: K80.00 Calculus of gallbladder with acute cholecystitis without obstruction (principal); K75.89 Other specified inflammatory liver diseases; K92.1 Melena; I10 Essential (primary) hypertension; N39.0 Urinary tract infection, site not specified; B96.20 Unspecified Escherichia coli [E. coli] as the cause of diseases classified elsewhere; F15.11 Other stimulant abuse, in remission; R76.8 Other specified abnormal immunological findings in serum; F17.210 Nicotine dependence, cigarettes, uncomplicated; E66.9 Obesity, unspecified; Z68.35 Body mass index [BMI] 35.0-35.9, adult; E87.21 Acute metabolic acidosis; K44.9 Diaphragmatic hernia without obstruction or gangrene
CPT/HCPCS: 36415; 74177; 74183; 76376; 76705; 80053; 80074; 81001; 81025; 81596; 82103; 82105; 82390; 82728; 83520; 83540; 83550; 83690; 85025; 85610; 85730; 86038; 86039; 86364; 86645; 86703; 87086; 87186; 87497; 87522; 87636; 96361; 96365; 96366; 96372; 96375; 96376; 99285; A9270; A9577; G0378; G0432; J0780; J1644; J2270; J2405; J2470; J2543; J7030; Q9967